=== PATIENT | female | born 1975 | race Caucasian/White ===

== ENCOUNTER 2017-02-13 12:08 | Emergency (ER) | payer SELFPAY ==
[2017-02-13 13:08] LABS: ABSOLUTE BASOPHILS # (AUTO) 0.1 10^3/uL (0.0-0.2); ABSOLUTE EOSINOPHILS # (AUTO) 0.3 10^3/uL (0.0-0.6); ABSOLUTE LYMPHOCYTES (AUTO) 2.6 10^3/uL (0.5-4.7); ABSOLUTE MONOCYTES (AUTO) 0.8 10^3/uL (0.1-1.4); ABSOLUTE NEUT (AUTO) 12.9 10^3/uL (1.7-8.2); BASOPHILS % (AUTO) 0.7 % (0-2); HEMATOCRIT 42.2 % (36.0-47.0); HEMOGLOBIN 13.1 g/dL (12.0-15.5); HGB HCT DIFFERENCE -2.9; LYMPHOCYTES % (AUTO) 15.4 % (13-45); MEAN CORPUSCULAR HEMOGLOBIN 20.3 pg (27.0-33.4); MEAN CORPUSCULAR HGB CONC 30.9 g/dL (32.0-36.0); MEAN CORPUSCULAR VOLUME 66 fl (80-97); MONOCYTES % (AUTO) 4.6 % (3-13); RED BLOOD COUNT 6.44 10^6/uL (3.72-5.28); RED CELL DISTRIBUTION WIDTH 19.3 % (11.5-14.0); SEGMENTED NEUTROPHILS % (AUTO) 77.3 % (42-78); WHITE BLOOD COUNT 16.6 10^3/uL (4.0-10.5)
[2017-02-13 13:12] LABS: APPEARANCE,URINE SLIGHTLY-CLOUDY; BILIRUBIN,URINE NEGATIVE (NEGATIVE); GLUCOSE, URINE NEGATIVE (NEGATIVE); KETONES,URINE NEGATIVE (NEGATIVE); LEUKOCYTE ESTERASE,URINE NEGATIVE (NEGATIVE); NITRITE,URINE NEGATIVE (NEGATIVE); PROTEIN,URINE NEGATIVE (NEGATIVE); UROBILINOGEN,URINE NEGATIVE mg/dL (<2.0)
[2017-02-13 13:20] LABS: ALANINE AMINOTRANSFERASE 20 U/L (9-52); ALBUMIN 4.3 g/dL (3.5-5.0); ALKALINE PHOSPHATASE 115 U/L (38-126); ANION GAP 15 (5-19); ASPARTATE AMINO TRANSFERASE 12 U/L (14-36); BILIRUBIN,DIRECT 0.4 mg/dL (0.0-0.4); BILIRUBIN,TOTAL 0.7 mg/dL (0.2-1.3); BLOOD UREA NITROGEN 11 mg/dL (7-20); CALCIUM 9.5 mg/dL (8.4-10.2); CARBON DIOXIDE 25 mmol/L (22-30); CHLORIDE 101 mmol/L (98-107); CREATININE RESULT 0.64 mg/dL (0.52-1.25); GLUCOSE 88 mg/dL (75-110); POTASSIUM 4.3 mmol/L (3.6-5.0); SODIUM 141.2 mmol/L (137-145); TOTAL PROTEIN 7.7 g/dL (6.3-8.2)
[2017-02-13 14:11] VITALS: BP 126/73
--- NOTE | 2017-02-13 14:16 | ER Document Report ---
ED Medical Screen (RME) - General Chief Complaint: Leg Swelling Stated Complaint: COUGH Time Seen by Provider: 02/13/17 12:43 Notes: Patient comes the emergency department complaining of leg swelling. She denies any pain. She has some sores in her legs which she states is from her anxiety where she chronically picks in her legs. She states she only came to the emergency department because a relative to in case he has congestive heart failure. She denies any type of shortness of breath or chest pain. She does not take any type of hormones. There is no known radiation of the symptoms. Symptoms have been constant. Nothing appears to make symptoms better or worse. She has not appreciated any fevers. TRAVEL OUTSIDE OF THE [place] IN LAST 30 DAYS: No - Related Data Allergies/Adverse Reactions: ofloxacin [From Floxin] Allergy (Intermediate, Verified 02/13/17 12:14) Hives Home Medications: Current Home Medications No Home Medications 02/13/17 [History] Past Medical History - General Information source: Patient - Social History Chew tobacco use (# tins/day): No Frequency of alcohol use: Occasional Drug Abuse: None Family history: Reviewed & Not Pertinent - Past Medical History Cardiac Medical History: Reports: Hx Hypertension Pulmonary Medical History: Reports: Hx COPD Endocrine Medical History: Reports: Hx Diabetes Mellitus Type 2 - gestational Renal/ Medical History: Denies: Hx Peritoneal Dialysis Musculoskeltal Medical History: Reports Hx Arthritis Past Surgical History: Reports: Hx Section, Hx Cholecystectomy - Immunizations Hx Diphtheria, Pertussis, Tetanus Vaccination: Yes Review of Systems - Review of Systems Constitutional: denies: Chills, Fever Cardiovascular: denies: Chest pain, Palpitations Respiratory: denies: Cough, Short of breath -: Yes All other systems reviewed and negative Physical Exam - Vital signs Vitals: Temp Pulse Resp BP Pulse Ox 98.5 F 69 24 H 152/88 H 96 02/13/17 12:14 02/13/17 12:14 02/13/17 12:14 02/13/17 12:14 02/13/17 12:14 Interpretation: Hypertensive - General General appearance: Appears well, Alert - HEENT Head: Normocephalic, Atraumatic Eyes: Normal Pupils: PERRL - Respiratory Respiratory status: No respiratory distress Chest status: Nontender Breath sounds: Normal Chest palpation: Normal - Cardiovascular Rhythm: Regular Heart sounds: Normal auscultation Murmur: No - Abdominal Inspection: Normal Distension: No distension Bowel sounds: Normal Tenderness: Nontender Organomegaly: No organomegaly - Back Back: Normal, Nontender - Extremities General upper extremity: Normal inspection, Nontender, Normal color, Normal ROM , Normal temperature General lower extremity: Nontender, Normal ROM, Normal temperature, Normal weight bearing, Other - Patient has multiple excoriated lesions on both lower extremities consistent with neurogenic eczema. No evidence of superimposed infection.. No: Antwan's sign - Neurological Neuro grossly intact: Yes Cognition: Normal Orientation: AAOx4 [place] Coma Scale Eye Opening: Spontaneous [place] Coma Scale Verbal: Oriented [place] Coma Scale Motor: Obeys Commands [place] Coma Scale Total: 15 Speech: Normal Motor strength normal: LUE, RUE, LLE, RLE Sensory: Normal - Psychological Associated symptoms: Normal affect, Normal mood - Skin Skin Temperature: Warm Skin Moisture: Dry Skin Color: Normal Course - Re-evaluation Re-evalutation: 02/13/17 14:14 Patient has an elevated white blood cell count. However there is no evidence that either leg is infected/cellulitic. No evidence for abscesses. No other obvious source of an elevated white blood cell count. Patient was educated about this and the need for return to a medical provider if she develops fevers , weakness, or symptoms consistent with infection. - Vital Signs Vital signs: Temp Pulse Resp BP Pulse Ox 98.5 F 65 16 126/73 H 96 02/13/17 12:14 02/13/17 14:10 02/13/17 14:10 02/13/17 14:10 02/13/17 14:10 - Laboratory Result Diagrams: 02/13/17 12:55 02/13/17 12:55 Laboratory results interpreted by me: 02/13/17 02/13/17 12:55 12:55 WBC 16.6 H RBC 6.44 H MCV 66 L MCH 20.3 L MCHC 30.9 L RDW 19.3 H Absolute Neutrophils 12.9 H AST 12 L Doctor's Discharge - Discharge Clinical Impression: Bilateral lower extremity edema Condition: Stable Disposition: HOME, SELF-CARE Instructions: Dependent Edema ([facility]) Additional Instructions: Please call your primary care physician as soon as possible to arrange for a recheck. Your white blood cell count was elevated today at 16,000. You need to have this rechecked within the next 7 days.
== END 2017-02-13 14:20 | disposition home or self-care (01) ==
LOC: ER 12:08
DX: R60.0 Localized edema (principal); L98.9 Disorder of the skin and subcutaneous tissue, unspecified; D72.829 Elevated white blood cell count, unspecified; I10 Essential (primary) hypertension; J44.9 Chronic obstructive pulmonary disease, unspecified; Z88.1 Allergy status to other antibiotic agents
CPT/HCPCS: 36415; 80053; 81001; 85025; 99283

== ENCOUNTER 2017-03-31 17:13 | Emergency (ER) | payer SELFPAY ==
[2017-03-31] MEDS ORDERED: ALBUTEROL SULFATE 0.083% NEB 2.5 MG/3 ML AMPUL NEB ONE ×2 (19:50→21:59)
--- NOTE | 2017-03-31 19:53 | ER Document Report ---
ED Medical Screen (RME) - General Chief Complaint: Abdominal Pain Stated Complaint: ABDOMINAL PAIN Time Seen by Provider: 03/31/17 19:42 Notes: patient is a 41 year old female who presents ot the ED complaining of RLQ pain that started today. states she was sitting in her home smoking a cigarette and had a coughing fit. describes it as RLQ pain with intermittent sharp craming sensation when she moves. otherwise denies fevers, chills, nausea, vomiting. LBM was today, soft. she states she has had a cough for one week, dx COPD, current smoker, no inhalers at home, not able to f/u with [facility] due to cost. TRAVEL OUTSIDE OF THE [place] IN LAST 30 DAYS: No - Related Data Allergies/Adverse Reactions: ofloxacin [From Floxin] Allergy (Intermediate, Verified 03/31/17 17:16) Hives Past Medical History - Social History Chew tobacco use (# tins/day): No Frequency of alcohol use: None Drug Abuse: None Family history: Reviewed & Not Pertinent - Past Medical History Cardiac Medical History: Reports: Hx Hypertension Pulmonary Medical History: Reports: Hx COPD Endocrine Medical History: Reports: Hx Diabetes Mellitus Type 2 - gestational Renal/ Medical History: Denies: Hx Peritoneal Dialysis Musculoskeltal Medical History: Reports Hx Arthritis Past Surgical History: Reports: Hx Section, Hx Cholecystectomy - Immunizations Hx Diphtheria, Pertussis, Tetanus Vaccination: Yes Physical Exam - Vital signs Vitals: Temp Pulse Resp BP Pulse Ox 98.6 F 80 16 182/65 H 96 03/31/17 17:16 03/31/17 17:16 03/31/17 17:16 03/31/17 17:16 03/31/17 17:16 - General General appearance: Appears well, Alert In distress: None - Respiratory Respiratory status: No respiratory distress Chest status: Nontender Breath sounds: Decreased air movement, Wheezing Chest palpation: Normal - Cardiovascular Rhythm: Regular Heart sounds: Normal auscultation, S1 appreciated, S2 appreciated - Abdominal Inspection: Normal Distension: No distension Bowel sounds: Normal Tenderness: Nontender Organomegaly: No organomegaly Course - Vital Signs Vital signs: Temp Pulse Resp BP Pulse Ox 98.6 F 80 16 182/65 H 96 03/31/17 17:16 03/31/17 17:16 03/31/17 17:16 03/31/17 17:16 10/13/17 17:16
[2017-03-31 20:25] LABS: ABSOLUTE BASOPHILS # (AUTO) 0.1 10^3/uL (0.0-0.2); ABSOLUTE EOSINOPHILS # (AUTO) 0.4 10^3/uL (0.0-0.6); ABSOLUTE LYMPHOCYTES (AUTO) 2.2 10^3/uL (0.5-4.7); ABSOLUTE MONOCYTES (AUTO) 0.7 10^3/uL (0.1-1.4); ABSOLUTE NEUT (AUTO) 12.3 10^3/uL (1.7-8.2); BASOPHILS % (AUTO) 0.5 % (0-2); EOSINOPHILS % (AUTO) 2.8 % (0-6); HEMATOCRIT 40.3 % (36.0-47.0); HEMOGLOBIN 12.6 g/dL (12.0-15.5); HGB HCT DIFFERENCE -2.5; LYMPHOCYTES % (AUTO) 14.1 % (13-45); MEAN CORPUSCULAR HEMOGLOBIN 19.9 pg (27.0-33.4); MEAN CORPUSCULAR HGB CONC 31.2 g/dL (32.0-36.0); MONOCYTES % (AUTO) 4.6 % (3-13); RED BLOOD COUNT 6.32 10^6/uL (3.72-5.28); WHITE BLOOD COUNT 15.8 10^3/uL (4.0-10.5)
[2017-03-31 20:27] LABS: AMORPHOUS SEDIMENT,URINE TRACE /HPF; APPEARANCE,URINE TURBID; BILIRUBIN,URINE NEGATIVE (NEGATIVE); GLUCOSE, URINE NEGATIVE (NEGATIVE); KETONES,URINE NEGATIVE (NEGATIVE); LEUKOCYTE ESTERASE,URINE NEGATIVE (NEGATIVE); NITRITE,URINE NEGATIVE (NEGATIVE); PROTEIN,URINE NEGATIVE (NEGATIVE)
[2017-03-31 20:44] LABS: ALANINE AMINOTRANSFERASE 18 U/L (9-52); ALKALINE PHOSPHATASE 125 U/L (38-126); ANION GAP 12 (5-19); ASPARTATE AMINO TRANSFERASE 18 U/L (14-36); BILIRUBIN,DIRECT 0.4 mg/dL (0.0-0.4); BILIRUBIN,TOTAL 0.6 mg/dL (0.2-1.3); BLOOD UREA NITROGEN 13 mg/dL (7-20); CALCIUM 9.3 mg/dL (8.4-10.2); CARBON DIOXIDE 27 mmol/L (22-30); CHLORIDE 103 mmol/L (98-107); CREATININE RESULT 0.71 mg/dL (0.52-1.25); GLUCOSE 115 mg/dL (75-110); LIPASE 37.5 U/L (23-300); POTASSIUM 4.9 mmol/L (3.6-5.0); SODIUM 141.8 mmol/L (137-145); TOTAL PROTEIN 7.3 g/dL (6.3-8.2)
--- NOTE | 2017-03-31 20:47 | RADIOLOGY REPORT (SQ) ---
EXAM DESCRIPTION: CHEST PA/LAT COMPLETED DATE/TIME: 03/31/2017 8:34 pm REASON FOR STUDY: cough COMPARISON: 12/22/2010 EXAM PARAMETERS: NUMBER OF VIEWS: two views TECHNIQUE: Digital Frontal and Lateral radiographic views of the chest acquired. RADIATION DOSE: NA LIMITATIONS: none FINDINGS: LUNGS AND PLEURA: No new opacities, masses or pneumothorax. No pleural effusion. MEDIASTINUM AND HILAR STRUCTURES: No masses or contour abnormalities. HEART AND VASCULAR STRUCTURES: Heart stable in size. No evidence for failure. BONES: No acute findings. HARDWARE: None in the chest. OTHER: No other significant finding. IMPRESSION: NO ACUTE CARDIOPULMONARY PROCESS. NO SIGNIFICANT CHANGE FROM PRIOR STUDY. TECHNICAL DOCUMENTATION: JOB ID: [id number] [employer]- All Rights Reserved
[2017-03-31 21:06] LABS: ANISOCYTOSIS 2+; MICROCYTOSIS 3+
[2017-03-31 21:08] LABS: POLYCHROMASIA SLIGHT
[2017-03-31 21:09] LABS: STOMATOCYTES SLIGHT
[2017-03-31 21:11] LABS: HYPOCHROMASIA 2+
[2017-03-31 21:14] LABS: MEAN CORPUSCULAR VOLUME 64 fl (80-97)
--- NOTE | 2017-03-31 22:09 | RADIOLOGY REPORT (SQ) ---
EXAM DESCRIPTION: CT ABD/PELVIS WITH IV ONLY COMPLETED DATE/TIME: 03/31/2017 9:59 pm REASON FOR STUDY: RLQ pain with wolf WBC COMPARISON: 04/17/2014 in 12/06/2013 TECHNIQUE: CT scan of the abdomen and pelvis performed using helical scanning technique with dynamic intravenous contrast injection. No oral contrast. Images reviewed with lung, soft tissue, and bone windows. Reconstructed coronal and sagittal MPR images reviewed. Delayed images for evaluation of the urinary system also acquired. All images stored on PACS. All CT scanners at this facility use dose modulation, iterative reconstruction, and/or weight based d osing when appropriate to reduce radiation dose to as low as reasonably achievable (ALARA). [facility]: Dose Right [facility]: CareDose [facility]: Dose Right [facility]: Teradose 4D [facility]: Umami CONTRAST TYPE AND DOSE: contrast/concentration: Isovue 370.00 mg/ml; Total Contrast Delivered: 100.0 ml; Total Saline Delivered: 72.0 ml RENAL FUNCTION: None required. The patient is less than 50 years old. RADIATION DOSE: Up-to-date CT equipment and radiation dose reduction techniques were employed. CTDIv ol: 21.1 mGy. DLP: 2267 mGy-cm.. LIMITATIONS: None. FINDINGS: LOWER CHEST: No significant findings. No nodules or infiltrates. LIVER: Stable hepatomegaly in the setting of hepatic steatosis. No masses. No dilated ducts. SPLEEN: Normal size. No focal lesions. PANCREAS: No masses. No significant calcifications. No adjacent inflammation or peripancreatic fluid collections. Pancreatic duct not dilated. GALLBLADDER: Surgically absent. ADRENAL GLANDS: No significant masses or asymmetry. RIGHT KIDNEY AND URETER: No solid masses. No significant calcifications. No hydronephrosis or hyd roureter. LEFT KIDNEY AND URETER: No solid masses. No significant calcifications. No hydronephrosis or hydr oureter. AORTA AND VESSELS: No aneurysm. No dissection. Renal arteries, SMA, celiac without stenosis. RETROPERITONEUM: No retroperitoneal adenopathy, hemorrhage or masses. BOWEL AND PERITONEAL CAVITY: No masses or inflammatory changes. No free fluid or peritoneal masses. APPENDIX: Normal. PELVIS: No mass. No free fluid. 8 mm calculus located within the bladder which is otherwise normal in appearance. ABDOMINAL WALL: No masses. No hernias. BONES: No significant or acute findings. OTHER: No other significant finding. IMPRESSION: NO ACUTE FINDINGS WITHIN THE ABDOMEN OR PELVIS TO ACCOUNT FOR REPORTED RIGHT LOWER QUADR ANT PAIN. APPENDIX IS NORMAL. INCIDENTAL NOTE MADE OF 8 MM CALCULUS WITHIN THE BLADDER WHICH PREVIOUSLY WAS LOCATED IN THE LEFT DIS DESIREE URETER ON CT FROM 2013. TECHNICAL DOCUMENTATION: JOB ID: [id number] Quality ID # [id number]: Final reports with documentation of one or more dose reduction techniques (e.g., Au tomated exposure control, adjustment of the mA and/or kV according to patient size, use of iterative reconstruction technique) 2010 [employer]- All Rights Reserved
[2017-03-31] MEDS ORDERED: ALBUTEROL SULFATE HFA (90 MCG/PUFF) 8 GM MDI (1 MDI/ER DISP) IH PRN (22:43)
--- NOTE | 2017-03-31 22:43 | ER Document Report ---
ED GI/ - General Chief Complaint: Abdominal Pain Stated Complaint: ABDOMINAL PAIN Time Seen by Provider: 03/31/17 19:42 Notes: Patient is a 41-year-old female presents with right lower quadrant pain. Patient states that she was sitting drinking iced tea when she had sudden right lower quadrant pain with associated nausea. She states that it was present for about half an hour and then down to a dull achy constant pain. She states that she has never had issues like this before as she still has her appendix. TRAVEL OUTSIDE OF THE [place] IN LAST 30 DAYS: No - Related Data Allergies/Adverse Reactions: ofloxacin [From Floxin] Allergy (Intermediate, Verified 03/31/17 17:16) Hives Past Medical History - Social History Smoking Status: Current Every Day Smoker Chew tobacco use (# tins/day): No Frequency of alcohol use: None Drug Abuse: None Family History: Reviewed & Not Pertinent Patient has suicidal ideation: No Patient has homicidal ideation: No - Past Medical History Cardiac Medical History: Reports: Hx Hypertension Pulmonary Medical History: Reports: Hx COPD Endocrine Medical History: Reports: Hx Diabetes Mellitus Type 2 - gestational Renal/ Medical History: Denies: Hx Peritoneal Dialysis Musculoskeltal Medical History: Reports Hx Arthritis Past Surgical History: Reports: Hx Section, Hx Cholecystectomy - Immunizations Hx Diphtheria, Pertussis, Tetanus Vaccination: Yes Review of Systems - Review of Systems Constitutional: No symptoms reported Cardiovascular: No symptoms reported Respiratory: Cough, Wheezing Gastrointestinal: See HPI -: Yes All other systems reviewed and negative Physical Exam - Vital signs Vitals: Temp Pulse Resp BP Pulse Ox 98.6 F 80 16 182/65 H 96 03/31/17 17:16 03/31/17 17:16 03/31/17 17:16 03/31/17 17:16 03/31/17 17:16 - Notes Notes: PHYSICAL EXAM GENERAL: Alert, interacts well. HEAD: Normocephalic, atraumatic. EYES: Pupils equal, round, and reactive to light. Extraocular movements intact. ENT: Oral mucosa moist, tongue midline. NECK: Full range of motion. Supple. Trachea midline. LUNGS: Bilateral expiratory wheezes without rales or rhonchi. No respiratory distress. HEART: Regular rate and rhythm. No murmurs, gallops, or rubs. ABDOMEN: Soft, nondistended, right lower quadrant tenderness. No guarding, rebound, or rigidity.. Bowel sounds present in all 4 quadrants. EXTREMITIES: Moves all 4 extremities spontaneously. No edema, radial and dorsalis pedis pulses 2/4 bilaterally. No cyanosis. NEUROLOGICAL: Alert and oriented x4. Normal speech. PSYCH: Normal affect, normal mood. SKIN: Warm, dry, normal turgor. No rashes or lesions noted. Course - Re-evaluation Re-evalutation: 03/31/17 22:41 Patient is a 41-year-old female hemodynamic stable, no acute distress afebrile. CT negative The patient has chosen to leave the facility against medical advice. The relevant issues have been reviewed and discussed with the patient and family at the bedside. Patient tolerating p.o. without any difficulty. Patient given strict return precautions and observation protocol for acute appendicitis. Patient agrees with plan and will follow up with primary care. - Vital Signs Vital signs: Temp Pulse Resp BP Pulse Ox 98.4 F 84 18 146/58 H 100 03/31/17 23:07 03/31/17 23:07 03/31/17 23:07 03/31/17 23:07 03/31/17 23:07 - Laboratory Result Diagrams: 03/31/17 20:05 03/31/17 20:05 Laboratory results interpreted by me: 03/31/17 03/31/17 03/31/17 17:50 20:05 20:05 WBC 15.8 H RBC 6.32 H MCV 64 L MCH 19.9 L MCHC 31.2 L RDW 19.0 H Absolute Neutrophils 12.3 H Glucose 115 H Urine Urobilinogen 2.0 H - Diagnostic Test Radiology reviewed: Image reviewed, Reports reviewed Discharge - Discharge Clinical Impression: COPD exacerbation Abdominal pain Qualifiers: Abdominal location: right lower quadrant Qualified Code(s): R10.31 - Right lower quadrant pain Condition: Good Disposition: HOME, SELF-CARE Instructions: Chronic Obstructive Lung Disease ([facility]), Observation for Appendicitis ([facility]) Prescriptions: Prednisone [Deltasone 20 mg Tablet] 3 tab PO DAILY 5 Days tablet Referrals: [facility] [Provider Group] - Follow up in 3-5 days
[2017-03-31 23:09] VITALS: BP 146/58
== END 2017-03-31 22:55 | disposition home or self-care (01) ==
LOC: ER 17:13
DX: J44.1 Chronic obstructive pulmonary disease with (acute) exacerbation (principal); R10.31 Right lower quadrant pain; R11.0 Nausea; F17.200 Nicotine dependence, unspecified, uncomplicated; I10 Essential (primary) hypertension; Z90.49 Acquired absence of other specified parts of digestive tract
CPT/HCPCS: 94640; 99284; 36415; 83690; 85025; 81025; 80053; 81001; 71020; 74177; J3490

== ENCOUNTER 2017-04-04 18:15 | Emergency (ER) | payer SELFPAY ==
--- NOTE | 2017-04-04 19:01 | ER Document Report ---
ED Medical Screen (RME) - General Chief Complaint: Abdominal Pain Stated Complaint: ABDOMINAL PAIN Time Seen by Provider: 04/04/17 18:53 Notes: Patient states that she was seen here several days ago for right lower quadrant pain. At that time a CT scan showed a normal appendix however it did show an 8 mm stone in her bladder. Patient states that the pain has has gotten worse. TRAVEL OUTSIDE OF THE [place] IN LAST 30 DAYS: No - Related Data Allergies/Adverse Reactions: ofloxacin [From Floxin] Allergy (Intermediate, Verified 04/04/17 18:20) Hives Past Medical History - Social History Family history: Reviewed & Not Pertinent - Past Medical History Cardiac Medical History: Reports: Hx Hypertension Pulmonary Medical History: Reports: Hx COPD Endocrine Medical History: Reports: Hx Diabetes Mellitus Type 2 - gestational Renal/ Medical History: Denies: Hx Peritoneal Dialysis Musculoskeltal Medical History: Reports Hx Arthritis Past Surgical History: Reports: Hx Section, Hx Cholecystectomy - Immunizations Hx Diphtheria, Pertussis, Tetanus Vaccination: Yes Physical Exam - Vital signs Vitals: Temp Pulse BP Pulse Ox 98.7 F 71 161/77 H 97 04/04/17 18:20 04/04/17 18:20 04/04/17 18:20 04/04/17 18:20 Course - Vital Signs Vital signs: Temp Pulse Resp BP Pulse Ox 98.7 F 71 161/77 H 97 04/04/17 18:20 04/04/17 18:20 04/04/17 18:20 04/04/17 18:20
[2017-04-04 19:50] LABS: ABSOLUTE BASOPHILS # (AUTO) 0.1 10^3/uL (0.0-0.2); ABSOLUTE EOSINOPHILS # (AUTO) 0.5 10^3/uL (0.0-0.6); ABSOLUTE LYMPHOCYTES (AUTO) 2.6 10^3/uL (0.5-4.7); ABSOLUTE MONOCYTES (AUTO) 0.8 10^3/uL (0.1-1.4); ABSOLUTE NEUT (AUTO) 11.4 10^3/uL (1.7-8.2); BASOPHILS % (AUTO) 0.5 % (0-2); HEMATOCRIT 39.4 % (36.0-47.0); HEMOGLOBIN 12.4 g/dL (12.0-15.5); HGB HCT DIFFERENCE -2.2; LYMPHOCYTES % (AUTO) 16.8 % (13-45); MEAN CORPUSCULAR HGB CONC 31.4 g/dL (32.0-36.0); MEAN CORPUSCULAR VOLUME 64 fl (80-97); MONOCYTES % (AUTO) 5.2 % (3-13); RED BLOOD COUNT 6.18 10^6/uL (3.72-5.28); RED CELL DISTRIBUTION WIDTH 19.3 % (11.5-14.0); SEGMENTED NEUTROPHILS % (AUTO) 74.5 % (42-78); WHITE BLOOD COUNT 15.4 10^3/uL (4.0-10.5)
[2017-04-04 19:51] LABS: APPEARANCE,URINE SLIGHTLY-CLOUDY; BILIRUBIN,URINE NEGATIVE (NEGATIVE); GLUCOSE, URINE NEGATIVE (NEGATIVE); KETONES,URINE NEGATIVE (NEGATIVE); LEUKOCYTE ESTERASE,URINE NEGATIVE (NEGATIVE); NITRITE,URINE NEGATIVE (NEGATIVE); PROTEIN,URINE NEGATIVE (NEGATIVE); URINE SPECIFIC GRAVITY 1.021
[2017-04-04 20:03] LABS: ALANINE AMINOTRANSFERASE 30 U/L (9-52); ALKALINE PHOSPHATASE 141 U/L (38-126); ANION GAP 12 (5-19); ASPARTATE AMINO TRANSFERASE 14 U/L (14-36); BILIRUBIN,DIRECT 0.4 mg/dL (0.0-0.4); BILIRUBIN,TOTAL 0.4 mg/dL (0.2-1.3); BLOOD UREA NITROGEN 13 mg/dL (7-20); CALCIUM 9.3 mg/dL (8.4-10.2); CARBON DIOXIDE 27 mmol/L (22-30); CHLORIDE 103 mmol/L (98-107); CREATININE RESULT 0.65 mg/dL (0.52-1.25); GLUCOSE 100 mg/dL (75-110); POTASSIUM 4.3 mmol/L (3.6-5.0); SODIUM 141.8 mmol/L (137-145); TOTAL PROTEIN 7.3 g/dL (6.3-8.2)
[2017-04-04 20:14] LABS: TOXIC GRANULATION SLIGHT
[2017-04-04 20:15] LABS: ANISOCYTOSIS 2+; HYPOCHROMASIA 2+; MICROCYTOSIS 3+
--- NOTE | 2017-04-04 21:15 | ER Document Report ---
ED General - General Chief Complaint: Abdominal Pain Stated Complaint: ABDOMINAL PAIN Time Seen by Provider: 04/04/17 18:53 TRAVEL OUTSIDE OF THE [place] IN LAST 30 DAYS: No - HPI Notes: Patient is a 41-year-old female who presents the ED complaining of continued right lower quadrant pain since her visit on Monday. At that time, patient had a CT scan report and blood work which was unremarkable for acute pathology. Patient states that she continues to have pain in that area that is worse with some movements and pressure. Patient states that the pain is improved when she sits forward and applies pressure. Patient is still eating and drinking without any difficulties. She is still urinating normally without any issues and having normal bowel movements. Patient states that her stool is firm but not hard. Her last bowel movement was today which was normal, but she had increased pain to the area when having the BM. The pain does not radiate and is described as sharp. She denies any recent illness. Denies any headache, fever, URI, sore throat, chest pain, palpitations, syncope, cough, shortness of breath, wheeze, dyspnea, nausea/vomiting/diarrhea, melena, hematochezia, urinary retention, dysuria, hematuria, vaginal discharge/odor/bleeding, loss of control of bowel or bladder, numbness/tingling, saddle anesthesia, muscle paralysis/weakness, or rash. - Related Data Allergies/Adverse Reactions: ofloxacin [From Floxin] Allergy (Intermediate, Verified 04/04/17 18:20) Hives Past Medical History - Social History Smoking Status: Current Every Day Smoker Family History: Reviewed & Not Pertinent - Past Medical History Cardiac Medical History: Reports: Hx Hypertension Pulmonary Medical History: Reports: Hx COPD Endocrine Medical History: Reports: Hx Diabetes Mellitus Type 2 - gestational Renal/ Medical History: Denies: Hx Peritoneal Dialysis Musculoskeltal Medical History: Reports Hx Arthritis Past Surgical History: Reports: Hx Section, Hx Cholecystectomy - Immunizations Hx Diphtheria, Pertussis, Tetanus Vaccination: Yes Review of Systems - Review of Systems Notes: REVIEW OF SYSTEMS: CONSTITUTIONAL : Denies fever, chills, or sweats. Denies recent illness. EENT: Denies eye, ear, throat, or mouth pain or symptoms. Denies nasal or sinus congestion or discharge. Denies throat, tongue, or mouth swelling or difficulty swallowing. CARDIOVASCULAR: Denies chest pain. Denies palpitations or racing or irregular heart beat. Denies ankle edema. RESPIRATORY: Denies cough, cold, or chest congestion. Denies shortness of breath, difficulty breathing, or wheezing. GASTROINTESTINAL: see hpi GENITOURINARY: Denies difficulty urinating, painful urination, burning, frequency, blood in urine, or discharge. FEMALE GENITOURINARY: Denies vaginal bleeding, heavy or abnormal periods, irregular periods. Denies vaginal discharge or odor. MUSCULOSKELETAL: Denies back or neck pain or stiffness. Denies joint pain or swelling. SKIN: Denies rash, lesions or sores. NEUROLOGICAL: Denies confusion or altered mental status. Denies passing out or loss of consciousness. Denies dizziness or lightheadedness. Denies headache. Denies weakness or paralysis or loss of use of either side. Denies problems with gait or speech. Denies sensory loss, numbness, or tingling. ALL OTHER SYSTEMS REVIEWED AND NEGATIVE. Dictation was performed using [employer] voice recognition software Physical Exam - Vital signs Vitals: Temp Pulse BP Pulse Ox 98.7 F 71 161/77 H 97 04/04/17 18:20 04/04/17 18:20 04/04/17 18:20 04/04/17 18:20 Notes: PHYSICAL EXAMINATION: GENERAL: Well-appearing, well-nourished and in no acute distress. A&Ox4 HEAD: Atraumatic, normocephalic. EYES: Pupils equal round and reactive to light, extraocular movements intact, sclera anicteric, conjunctiva are normal. ENT: Nares patent and without discharge. oropharynx clear without exudates. No tonsilar hypertrophy or erythema. Moist mucous membranes. NECK: Normal range of motion, supple without lymphadenopathy LUNGS: Breath sounds clear to auscultation bilaterally and equal. No wheezes rales or rhonchi. HEART: Regular rate and rhythm without murmurs, rubs, gallops. ABDOMEN: Soft, nondistended abdomen. No guarding, no rebound. No masses appreciated. Normal bowel sounds present. No CVA tenderness bilaterally. Morbidly obese. + tenderness to light pressure of the RLQ. No erythema, ecchymosis, abrasion, laceration, or rash noted. No obvious hernia appreciated. No inguinal adenopathy. The tenderness appears to be lateral and superior to the area of [employer]. Musculoskeletal: FROM to passive/active. Strength 5+/5. Extremities: No cyanosis, clubbing, or edema b/l. Peripheral pulses 2+. Capillary refill less than 3 seconds. NEUROLOGICAL: Cranial nerves grossly intact. Normal speech, normal gait. Normal sensory, motor exams PSYCH: Normal mood, normal affect. SKIN: Warm, Dry, normal turgor, no rashes or lesions noted. Course - Re-evaluation Re-evalutation: 04/04/17 22:[address] Francois who is in agreement with discharge/plan: Patient is an afebrile, well-hydrated, 41-year-old female who presents the ED with continued right lower quadrant pain. Vitals are stable. Patient was evaluated 4 days ago and had a negative work up including a CT scan of the abd/ pelvis. CBC, CMP, UA, pregn unremarkable today. Abd XR series did show stool throughout the colon. I suspect that her sx's are most likely a derivative of her abundant stool. I will send her home with a Rx for Mag citrate that she may take at home. Low suspicion/risk for acute appendicitis, bowel obstruction , acute cholecystitis, acute cholangitis, perforated diverticulitis, incarcerated hernia, pancreatitis, perforated ulcer, peritonitis, sepsis, pelvic inflammatory disease, ectopic , tubo-ovarian abscess, ovarian torsion, or other systemic emergent condition at this time. Patient is aware that her condition can change from initial presentation and she needs to monitor symptoms closely and seek medical attention if any acute changes. Conservative measures otherwise for symptoms. Recheck with your PCM in 2-3 days. Consider consult with a rewinder operator. Return to the ED with any worsening/concerning symptoms otherwise as reviewed in discharge. Patient is in agreement. - Vital Signs Vital signs: Temp Pulse Resp BP Pulse Ox 98.7 F 71 161/77 H 97 04/04/17 18:20 04/04/17 18:20 04/04/17 18:20 04/04/17 18:20 - Laboratory Result Diagrams: 04/04/17 19:00 04/04/17 19:00 Laboratory results interpreted by me: 04/04/17 04/04/17 04/04/17 19:00 19:00 19:00 WBC 15.4 H RBC 6.18 H MCV 64 L MCH 20.0 L MCHC 31.4 L RDW 19.3 H Absolute Neutrophils 11.4 H Alkaline Phosphatase 141 H Urine Urobilinogen 2.0 H Discharge - Discharge Clinical Impression: Right lower quadrant abdominal pain of unknown etiology Condition: Stable Disposition: HOME, SELF-CARE Instructions: Abdominal Pain ([facility]), Low-Fat Diet ([facility]), Observation for Appendicitis ([facility]), Stool Softener ([facility]) Additional Instructions: Maintain adequate fluid and food intake Increase fiber in diet and water intake tylenol if needed Stool softener as directed Monitor for any worsening symptoms Make sure you are staying hydrated enough to urinate and have normal BM's Recheck with your PCM in 2-3 days Consider consult with Gastroenterology for ongoing/worsening symptoms Return to the ED with any worsening symptoms and/or development of fever, headache, chest pain, palpitations, syncope, shortness of breath, trouble breathing, abdominal pain, n/v/d, blood in stool/urine, weakness, or other worsening symptoms that are concerning to you. Prescriptions: Magnesium Citrate [Citrate of Magnesia 296 ml Bottle] 296 ml PO ONCE PRN #1 bottle PRN Reason: Polyethylene Glycol 3350 [Miralax] 1 cap PO DAILY #527 powder Forms: Elevated Blood Pressure Referrals: OCTAVIO DE SOUZA MD [ACTIVE STAFF] - Follow up as needed
--- NOTE | 2017-04-04 23:19 | RADIOLOGY REPORT (SQ) ---
EXAM DESCRIPTION: ACUTE ABDOMEN SERIES COMPLETED DATE/TIME: 04/04/2017 10:13 pm REASON FOR STUDY: abd pain COMPARISON: None. NUMBER OF VIEWS: Three views. TECHNIQUE: Frontal chest, supine abdomen and upright/decubitus abdomen radiographic images acquired. LIMITATIONS: None. FINDINGS: CHEST: Lungs clear of infiltrates. FREE AIR: None. No abnormal gas collections. BOWEL GAS PATTERN: Nonobstructive pattern. No dilated loops or air fluid levels. CONSTIPATION: mild. CALCIFICATIONS: No suspicious calcifications. HARDWARE: None in the abdomen. SOFT TISSUES: No gross mass or suggestion of organomegaly. BONES: No acute fracture. No worrisome bone lesions. OTHER: No other significant finding. IMPRESSION: NO RADIOGRAPHIC EVIDENCE FOR ACUTE ABDOMINAL DISEASE. CONSTIPATION. TECHNICAL DOCUMENTATION: JOB ID: [id number] [employer]- All Rights Reserved
[2017-04-04 23:32] VITALS: BP 149/67
== END 2017-04-04 23:34 | disposition home or self-care (01) ==
LOC: ER 18:15
DX: R10.31 Right lower quadrant pain (principal); I10 Essential (primary) hypertension; J44.9 Chronic obstructive pulmonary disease, unspecified; F17.200 Nicotine dependence, unspecified, uncomplicated; Z88.1 Allergy status to other antibiotic agents
CPT/HCPCS: 36415; 74022; 80053; 81001; 81025; 85025; 99284

== ENCOUNTER 2017-10-03 08:29 | Emergency (ER) | payer MEDICAID ==
[2017-10-03] MEDS ORDERED: IPRATROPIUM/ALBUTEROL 0.5-2.5 MG/3 ML AMPUL NEB ONE ×3 (08:43→08:44)
--- NOTE | 2017-10-03 08:44 | ER Document Report ---
ED General - General Chief Complaint: Shortness Of Breath Stated Complaint: SHORTNESS OF BREATH Time Seen by Provider: 10/03/17 08:43 Mode of Arrival: Ambulatory Information source: Patient Notes: 42-year-old female history of COPD presents with shortness of breath wheezing sore throat. Patient notes symptoms have been ongoing for a couple days. Denies any fevers or chills. Patient was seen at outside facility yesterday rapid strep was negative, notes she was given a breathing treatment and discharged home patient notes she has had continued difficulty breathing pt is a smoker TRAVEL OUTSIDE OF THE [place] IN LAST 30 DAYS: No - HPI Onset: Last week Onset/Duration: Persistent Quality of pain: No pain Severity: Moderate Pain Level: Denies Associated symptoms: Nonproductive cough, Shortness of breath Exacerbated by: Walking, Coughing Relieved by: Denies Similar symptoms previously: Yes Recently seen / treated by doctor: Yes - Related Data Allergies/Adverse Reactions: ofloxacin [From Floxin] Allergy (Intermediate, Verified 04/04/17 18:20) Hives Past Medical History - Social History Smoking Status: Current Every Day Smoker Cigarette use (# per day): Yes Chew tobacco use (# tins/day): No Smoking Education Provided: Yes - Patient counselled regarding cessation for 4 minutes Family History: Reviewed & Not Pertinent - Past Medical History Cardiac Medical History: Reports: Hx Hypertension Pulmonary Medical History: Reports: Hx COPD Endocrine Medical History: Reports: Hx Diabetes Mellitus Type 2 - gestational Renal/ Medical History: Denies: Hx Peritoneal Dialysis Musculoskeltal Medical History: Reports Hx Arthritis Past Surgical History: Reports: Hx Section, Hx Cholecystectomy - Immunizations Hx Diphtheria, Pertussis, Tetanus Vaccination: Yes Review of Systems - Review of Systems Notes: REVIEW OF SYSTEMS: CONSTITUTIONAL : Denies fever, chills, or sweats. Denies recent illness. EENT: Admits to sore throat CARDIOVASCULAR: Denies chest pain. Denies palpitations or racing or irregular heart beat. Denies ankle edema. RESPIRATORY: Admits cough wheezing GASTROINTESTINAL: Denies abdominal pain or distention. Denies nausea, vomiting , or diarrhea. Denies blood in vomitus, stools, or per rectum. Denies black, tarry stools. Denies constipation. GENITOURINARY: Denies difficulty urinating, painful urination, burning, frequency, blood in urine, or discharge. FEMALE GENITOURINARY: Denies vaginal bleeding, heavy or abnormal periods, irregular periods. Denies vaginal discharge or odor. MUSCULOSKELETAL: Denies back or neck pain or stiffness. Denies joint pain or swelling. SKIN: Denies rash, lesions or sores. HEMATOLOGIC : Denies easy bruising or bleeding. LYMPHATIC: Denies swollen, enlarged glands. NEUROLOGICAL: Denies confusion or altered mental status. Denies passing out or loss of consciousness. Denies dizziness or lightheadedness. Denies headache. Denies weakness or paralysis or loss of use of either side. Denies problems with gait or speech. Denies sensory loss, numbness, or tingling. Denies seizures. PSYCHIATRIC: Denies anxiety or stress. Denies depression, suicidal ideation, or homicidal ideation. ALL OTHER SYSTEMS REVIEWED AND NEGATIVE. PHYSICAL EXAMINATION: GENERAL: Well-appearing, well-nourished and in mild respiratory distress HEAD: Atraumatic, normocephalic. EYES: Pupils equal round and reactive to light, extraocular movements intact, conjunctiva are normal. ENT: Nares patent, oropharynx clear without exudates. Moist mucous membranes. Bilateral tonsillar enlargement no exudate NECK: Normal range of motion, supple without lymphadenopathy LUNGS: coarse wheezing all throughout HEART: Regular rate and rhythm without murmurs ABDOMEN: Soft, nontender, nondistended abdomen. No guarding, no rebound. No masses appreciated. Female : deferred Musculoskeletal: Normal range of motion, no pitting or edema. No cyanosis. NEUROLOGICAL: Cranial nerves grossly intact. Normal speech, normal gait. Normal sensory, motor exams PSYCH: Normal mood, normal affect. SKIN: Warm, Dry, normal turgor, no rashes or lesions noted. Dictation was performed using [employer] voice recognition software Physical Exam - Vital signs Vitals: Temp Pulse Resp BP Pulse Ox 97.8 F 66 20 183/71 H 93 10/03/17 08:36 10/03/17 08:36 10/03/17 08:36 10/03/17 08:36 10/03/17 08:36 Course - Re-evaluation Re-evalutation: 10/03/17 09:00 Patient's airway is patent overall she looks well is satting 93-94% on room air. 10/03/17 11:05 pt was ambulated, satting 92-95% with ambulation but at rest back ot 95%, will ocntinue ot watch. 10/03/17 11:50 Patient has been resting comfortably satting 95% speaking complete sentences, patient overall looks well is in no distress will be discharged home she is already on prescription for prednisone and albuterol doxycycline and Hycodan elixir After performing a Medical Screening Examination, I estimate there is LOW risk for ACUTE CORONARY SYNDROME, PULMONARY EMBOLI, RESPIRATORY FAILURE, SEPSIS OR MENINGITIS, thus I consider the discharge disposition reasonable. I have reevaluated this patient multiple times and no significant life threatening changes are noted. The patient and I have discussed the diagnosis and risks, and we agree with discharging home with close follow-up. We also discussed returning to the Emergency Department immediately if new or worsening symptoms occur. We have discussed the symptoms which are most concerning (e.g., changing or worsening pain, trouble swallowing or breathing, neck stiffness, fever) that necessitate immediate return. - Vital Signs Vital signs: Temp Pulse Resp BP Pulse Ox 97.8 F 66 23 H 154/64 H 94 10/03/17 08:36 10/03/17 08:36 10/03/17 11:00 10/03/17 10:02 10/03/17 11:00 - Laboratory Result Diagrams: 10/03/17 08:58 10/03/17 10:58 Laboratory results interpreted by me: 10/03/17 10/03/17 08:58 10:58 WBC 14.1 H RBC 6.30 H MCV 63 L MCH 19.0 L MCHC 30.3 L RDW 20.7 H Absolute Neutrophils 10.3 H Glucose 130 H - Diagnostic Test Radiology reviewed: Image reviewed - No acute abnormality noted on two-view chest x-ray, Reports reviewed Discharge - Discharge Clinical Impression: COPD exacerbation, Sore throat Condition: Stable Disposition: HOME, SELF-CARE Instructions: Chronic Obstructive Lung Disease ([facility]) Prescriptions: Benzonatate [Tessalon Perles 100 mg Capsule] 100 mg PO Q8HP PRN #40 capsule PRN Reason: Guaifenesin [Mucinex] 600 mg PO BID #20 tab.er.[id number] Referrals: SILVIO MOULTON MD [ACTIVE STAFF] - Follow up tomorrow
[2017-10-03 09:18] LABS: ABSOLUTE BASOPHILS # (AUTO) 0.1 10^3/uL (0.0-0.2); ABSOLUTE EOSINOPHILS # (AUTO) 0.2 10^3/uL (0.0-0.6); ABSOLUTE LYMPHOCYTES (AUTO) 2.2 10^3/uL (0.5-4.7); ABSOLUTE MONOCYTES (AUTO) 1.3 10^3/uL (0.1-1.4); ABSOLUTE NEUT (AUTO) 10.3 10^3/uL (1.7-8.2); BASOPHILS % (AUTO) 0.7 % (0-2); EOSINOPHILS % (AUTO) 1.4 % (0-6); HEMATOCRIT 39.6 % (36.0-47.0); LYMPHOCYTES % (AUTO) 15.6 % (13-45); MEAN CORPUSCULAR HGB CONC 30.3 g/dL (32.0-36.0); MEAN CORPUSCULAR VOLUME 63 fl (80-97); MONOCYTES % (AUTO) 9.3 % (3-13); PLATELET COUNT 286 10^3/uL (150-450); RED CELL DISTRIBUTION WIDTH 20.7 % (11.5-14.0); TOTAL CELLS COUNTED % (AUTO) 100 %; WHITE BLOOD COUNT 14.1 10^3/uL (4.0-10.5)
--- NOTE | 2017-10-03 09:47 | RADIOLOGY REPORT (SQ) ---
EXAM DESCRIPTION: CHEST 2 VIEWS COMPLETED DATE/TIME: 10/03/2017 9:37 am REASON FOR STUDY: cough , wheezing COMPARISON: Two-view chest 03/31/2017, 12/22/2010 EXAM PARAMETERS: NUMBER OF VIEWS: two views TECHNIQUE: Digital Frontal and Lateral radiographic views of the chest acquired. RADIATION DOSE: NA LIMITATIONS: none FINDINGS: LUNGS AND PLEURA: No opacities, masses or pneumothorax. No pleural effusion. MEDIASTINUM AND HILAR STRUCTURES: No masses or contour abnormalities. HEART AND VASCULAR STRUCTURES: Heart normal size. No evidence for failure. BONES: No acute findings. HARDWARE: None in the chest. OTHER: No other significant finding. IMPRESSION: NO ACUTE RADIOGRAPHIC FINDING IN THE CHEST. TECHNICAL DOCUMENTATION: JOB ID: [id number] [employer]- All Rights Reserved Reading location - IP/workstation name: [email or web address]
[2017-10-03 09:49] LABS: ANISOCYTOSIS 2+; HYPOCHROMASIA SLIGHT; OVALOCYTES SLIGHT; PLATELET COMMENT ADEQUATE; POIKILOCYTOSIS SLIGHT; TOXIC GRANULATION 1+
[2017-10-03] MEDS ORDERED: HYDROCODONE BIT/HOMATROPINE SYRUP 5 ML UDCUP PO ONE (10:30)
[2017-10-03] MEDS ORDERED: HYDROCODONE BIT/HOMATROPINE 5-1.5 MG TABLET PO ONE (11:00)
[2017-10-03 11:19] LABS: ALANINE AMINOTRANSFERASE 29 U/L (9-52); ALBUMIN 3.6 g/dL (3.5-5.0); ALKALINE PHOSPHATASE 103 U/L (38-126); ANION GAP 10 (5-19); ASPARTATE AMINO TRANSFERASE 21 U/L (14-36); BILIRUBIN,DIRECT 0.3 mg/dL (0.0-0.4); BILIRUBIN,TOTAL 0.3 mg/dL (0.2-1.3); BLOOD UREA NITROGEN 12 mg/dL (7-20); CALCIUM 8.7 mg/dL (8.4-10.2); CARBON DIOXIDE 29 mmol/L (22-30); CHLORIDE 103 mmol/L (98-107); GLUCOSE 130 mg/dL (75-110); POTASSIUM 3.9 mmol/L (3.6-5.0); SODIUM 142.3 mmol/L (137-145); TOTAL PROTEIN 6.6 g/dL (6.3-8.2)
[2017-10-03 11:25] VITALS: BP 154/64
== END 2017-10-03 12:02 | disposition home or self-care (01) ==
LOC: ER 08:29
DX: J44.1 Chronic obstructive pulmonary disease with (acute) exacerbation (principal); J02.9 Acute pharyngitis, unspecified; R06.02 Shortness of breath; R06.2 Wheezing; R05 Cough; F17.210 Nicotine dependence, cigarettes, uncomplicated; E11.9 Type 2 diabetes mellitus without complications; I10 Essential (primary) hypertension
CPT/HCPCS: 99406; 94640 ×2; 99285; 36415; 85025; 80053; 71046; J7620

== ENCOUNTER 2017-10-04 15:45 | Inpatient (IN) | payer MEDICAID ==
[2017-10-04] MEDS ORDERED: IPRATROPIUM/ALBUTEROL 0.5-2.5 MG/3 ML AMPUL NEB ONE ×2 (16:10→17:20)
--- NOTE | 2017-10-04 16:14 | ER Document Report ---
ED Medical Screen (RME) - General Chief Complaint: Shortness Of Breath Stated Complaint: SHORTNESS OF BREATH Time Seen by Provider: 10/04/17 16:09 Notes: Patient was seen here yesterday and this is her third visit to a physician in the last several days. The visits have been for shortness of breath. She is currently on prednisone inhalers cough syrup and antibiotics but states she feels no better and continues to be short of breath. Chest x-ray yesterday was unremarkable. She is PERC negative. TRAVEL OUTSIDE OF THE [place] IN LAST 30 DAYS: No - Related Data Allergies/Adverse Reactions: ofloxacin [From Floxin] Allergy (Intermediate, Verified 04/04/17 18:20) Hives Past Medical History - Social History Family history: Reviewed & Not Pertinent - Past Medical History Cardiac Medical History: Reports: Hx Hypertension Pulmonary Medical History: Reports: Hx Asthma, Hx COPD Endocrine Medical History: Reports: Hx Diabetes Mellitus Type 2 - gestational Renal/ Medical History: Denies: Hx Peritoneal Dialysis Musculoskeltal Medical History: Reports Hx Arthritis Past Surgical History: Reports: Hx Section, Hx Cholecystectomy - Immunizations Hx Diphtheria, Pertussis, Tetanus Vaccination: Yes Physical Exam - Vital signs Vitals: Temp Pulse Resp BP Pulse Ox 98.3 F 63 20 160/69 H 95 10/04/17 15:49 10/04/17 15:49 10/04/17 15:49 10/04/17 15:49 10/04/17 15:49 Course - Vital Signs Vital signs: Temp Pulse Resp BP Pulse Ox 98.3 F 63 20 160/69 H 95 10/04/17 15:49 10/04/17 15:49 10/04/17 15:49 10/04/17 15:49 10/04/17 15:49
[2017-10-04 16:39] LABS: ABSOLUTE BASOPHILS # (AUTO) 0.1 10^3/uL (0.0-0.2); ABSOLUTE EOSINOPHILS # (AUTO) 0.3 10^3/uL (0.0-0.6); ABSOLUTE LYMPHOCYTES (AUTO) 2.9 10^3/uL (0.5-4.7); ABSOLUTE NEUT (AUTO) 11.7 10^3/uL (1.7-8.2); BASOPHILS % (AUTO) 0.4 % (0-2); EOSINOPHILS % (AUTO) 2.1 % (0-6); HEMOGLOBIN 11.8 g/dL (12.0-15.5); MEAN CORPUSCULAR HGB CONC 30.3 g/dL (32.0-36.0); MEAN CORPUSCULAR VOLUME 63 fl (80-97); MONOCYTES % (AUTO) 6.5 % (3-13); PLATELET COUNT 312 10^3/uL (150-450); RED BLOOD COUNT 6.22 10^6/uL (3.72-5.28); RED CELL DISTRIBUTION WIDTH 20.5 % (11.5-14.0); TOTAL CELLS COUNTED % (AUTO) 100 %
[2017-10-04 16:56] LABS: ANION GAP 10 (5-19); BLOOD UREA NITROGEN 13 mg/dL (7-20); CALCIUM 8.7 mg/dL (8.4-10.2); CARBON DIOXIDE 33 mmol/L (22-30); CHLORIDE 102 mmol/L (98-107); GLUCOSE 100 mg/dL (75-110); POTASSIUM 4.1 mmol/L (3.6-5.0)
[2017-10-04 17:17] LABS: HYPOCHROMASIA SLIGHT; TOXIC GRANULATION SLIGHT
[2017-10-04 17:18] LABS: ANISOCYTOSIS 2+; OVALOCYTES SLIGHT; PLATELET COMMENT ADEQUATE; POIKILOCYTOSIS SLIGHT; TARGET CELLS SLIGHT; TEAR DROP CELLS SLIGHT
[2017-10-04] MEDS ORDERED: PREDNISONE 20 MG TABLET PO ONE (17:20)
[2017-10-04] MEDS ORDERED: METHYLPREDNISOLONE INJ 125 MG/2 ML SDV IV ONE (17:21)
--- NOTE | 2017-10-04 18:04 | RADIOLOGY REPORT (SQ) ---
EXAM DESCRIPTION: CHEST 2 VIEWS COMPLETED DATE/TIME: 10/04/2017 5:56 pm REASON FOR STUDY: cough, sob COMPARISON: 10/03/2017 EXAM PARAMETERS: NUMBER OF VIEWS: two views TECHNIQUE: Digital Frontal and Lateral radiographic views of the chest acquired. RADIATION DOSE: NA LIMITATIONS: none FINDINGS: LUNGS AND PLEURA: No opacities, masses or pneumothorax. No pleural effusion. MEDIASTINUM AND HILAR STRUCTURES: No masses or contour abnormalities. HEART AND VASCULAR STRUCTURES: Heart normal size. No evidence for failure. BONES: No acute findings. HARDWARE: None in the chest. OTHER: No other significant finding. IMPRESSION: NO ACUTE RADIOGRAPHIC FINDING IN THE CHEST. TECHNICAL DOCUMENTATION: JOB ID: [id number] [employer]- All Rights Reserved Reading location - IP/workstation name: [email or web address]
[2017-10-04 18:10] LABS: VENOUS BLOOD BASE EXCESS 6.3 mmol/L; VENOUS BLOOD HCO3 33.7 mmol/L (20-32); VENOUS BLOOD PCO2 63.3 mmHg (35-63); VENOUS BLOOD PH 7.34 (7.30-7.42)
[2017-10-04] MEDS ORDERED: ALBUTEROL SULFATE 0.083% NEB 2.5 MG/3 ML AMPUL NEB ONE ×3 (18:11→19:39)
--- NOTE | 2017-10-04 19:09 | ER Document Report ---
ED Respiratory Problem - General Mode of Arrival: Ambulatory Information source: Patient TRAVEL OUTSIDE OF THE [place] IN LAST 30 DAYS: No - HPI Patient complains to provider of: COPD, Cough, Short of breath Onset: Other - 5 days Duration: Continuous Quality of pain: Other - Tightness Pain Level: 1 Context: Hx COPD Chest pain/discomfort: Tightness Cough: Nonproductive Associated symptoms: Cough, Short of breath, Wheezing Similar symptoms previously: Yes Recently seen / treated by doctor: Yes <TJ PINEDA - Last Filed: 10/04/17 19:02> <DARIAN CHAPA - Last Filed: 10/04/17 22:20> - General Chief Complaint: Shortness Of Breath Stated Complaint: SHORTNESS OF BREATH Time Seen by Provider: 10/04/17 16:09 Notes: Patient presents complaining of shortness of breath with wheezing. Patient states that she was seen 5 days ago at the [facility] and given a prescription for Hycodan, prednisone and doxycycline. Patient states that she was here yesterday for the same complaint and given a prescription for Tessalon Perles. Patient denies any fever. Patient does complain of some chest discomfort with coughing. Patient complains of persistent shortness of breath. Patient does acknowledge that she smokes a pack of cigarettes a day but states she has not smoked any for the past 4 days. (TJ PINEDA) - Related Data Allergies/Adverse Reactions: ofloxacin [From Floxin] Allergy (Intermediate, Verified 04/04/17 18:20) Hives Past Medical History - General Information source: Patient - Social History Smoking Status: Current Every Day Smoker Frequency of alcohol use: None Drug Abuse: None Occupation: none Family History: Reviewed & Not Pertinent Patient has suicidal ideation: No Patient has homicidal ideation: No - Past Medical History Cardiac Medical History: Reports: Hx Hypertension Pulmonary Medical History: Reports: Hx Asthma, Hx COPD Endocrine Medical History: Reports: Hx Diabetes Mellitus Type 2 - gestational Renal/ Medical History: Denies: Hx Peritoneal Dialysis Musculoskeltal Medical History: Reports Hx Arthritis Past Surgical History: Reports: Hx Section, Hx Cholecystectomy - Immunizations Hx Diphtheria, Pertussis, Tetanus Vaccination: Yes <TJ PINEDA - Last Filed: 10/04/17 19:02> Review of Systems - Review of Systems Constitutional: No symptoms reported. denies: Fever EENT: No symptoms reported Cardiovascular: No symptoms reported Respiratory: Cough, Short of breath, Wheezing Gastrointestinal: denies: Nausea, Vomiting Genitourinary: No symptoms reported Female Genitourinary: No symptoms reported Musculoskeletal: No symptoms reported. denies: Back pain Skin: No symptoms reported Hematologic/Lymphatic: No symptoms reported Neurological/Psychological: No symptoms reported <TJ PINEDA - Last Filed: 10/04/17 19:02> Physical Exam - General General appearance: Appears well, Alert In distress: Mild - HEENT Head: Normocephalic, Atraumatic Eyes: Normal Conjunctiva: Normal Mouth/Lips: Normal Mucous membranes: Normal Pharynx: Erythema. No: Peritonsillar abscess, Tonsillar hypertrophy Neck: Normal, Supple. No: Lymphadenopathy - Respiratory Respiratory status: Tachypnea Chest status: Pain with cough Breath sounds: Nonproductive cough, Wheezing Chest palpation: Normal - Cardiovascular Rhythm: Regular. No: Tachycardia Heart sounds: S1 appreciated, S2 appreciated Murmur: No - Back Back: Normal, Nontender. No: CVA tenderness - Extremities General upper extremity: Normal inspection, Normal strength General lower extremity: Normal inspection, Normal strength - Neurological Neuro grossly intact: Yes Cognition: Normal Gantt Coma Scale Eye Opening: Spontaneous Gantt Coma Scale Verbal: Oriented Gantt Coma Scale Motor: Obeys Commands Gantt Coma Scale Total: 15 - Psychological Associated symptoms: Normal affect, Normal mood - Skin Skin Temperature: Warm Skin Moisture: Dry Skin Color: Normal <TJ PINEDA - Last Filed: 10/04/17 19:02> - Vital signs Vitals: Temp Pulse Resp BP Pulse Ox 98.3 F 63 20 160/69 H 95 10/04/17 15:49 10/04/17 15:49 10/04/17 15:49 10/04/17 15:49 10/04/17 15:49 Course - Laboratory Result Diagrams: 10/04/17 16:18 10/04/17 16:18 - Diagnostic Test Radiology reviewed: Reports reviewed <TJ PINEDA - Last Filed: 10/04/17 19:02> - Laboratory Result Diagrams: 10/04/17 16:18 10/04/17 16:18 <DARIAN CHAPA - Last Filed: 10/04/17 22:20> - Re-evaluation Re-evalutation: 10/04/17 18:30 Patient continues with diffuse bilateral medicines ordered. 10/04/17 19:[address] Garcia who advises giving patient 2 g of magnesium and having her follow-up with a information management officer as an outpatient. 10/04/17 19:12 Report and handoff given to calling her C Yazmin GRIGSBY (TJ PINEDA) 10/04/17 22:20 Patient remains tachypneic with coarse breath sounds despite multiple medications administered here. Patient ambulated maintaining a sat of 89% with tachypnea. Patient was been admitted to the hospitalist service for COPD exacerbation. Patient agrees with plan. (DARIAN CHAPA) - Vital Signs Vital signs: Temp Pulse Resp BP Pulse Ox 98.3 F 63 24 H 171/65 H 95 10/04/17 15:49 10/04/17 15:49 10/04/17 21:02 10/04/17 21:02 10/04/17 21:02 - Laboratory Laboratory results interpreted by me: 10/04/17 10/04/17 10/04/17 16:18 16:18 16:18 WBC 16.0 H RBC 6.22 H Hgb 11.8 L MCV 63 L MCH 19.0 L MCHC 30.3 L RDW 20.5 H Absolute Neutrophils 11.7 H VBG pCO2 VBG HCO3 Carbon Dioxide 33 H NT-Pro-B Natriuret Pep 134 H 10/04/17 17:43 WBC RBC Hgb MCV MCH MCHC RDW Absolute Neutrophils VBG pCO2 63.3 H VBG HCO3 33.7 H Carbon Dioxide NT-Pro-B Natriuret Pep 10/04/17 19:04 Labs- Entire Visit 10/04/17 10/04/17 10/04/17 16:18 16:18 16:18 WBC 16.0 H RBC 6.22 H Hgb 11.8 L Hct 39.0 MCV 63 L MCH 19.0 L MCHC 30.3 L RDW 20.5 H Plt Count 312 Seg Neutrophils % 73.0 Lymphocytes % 18.0 Monocytes % 6.5 Eosinophils % 2.1 Basophils % 0.4 Absolute Neutrophils 11.7 H Absolute Lymphocytes 2.9 Absolute Monocytes 1.0 Absolute Eosinophils 0.3 Absolute Basophils 0.1 Toxic Granulation SLIGHT Platelet Comment ADEQUATE Hypochromasia SLIGHT Poikilocytosis SLIGHT Anisocytosis 2+ Microcytosis 3+ Target Cells SLIGHT Tear Drop Cells SLIGHT Ovalocytes SLIGHT VBG pH VBG pCO2 VBG HCO3 VBG Base Excess Sodium 145.0 Potassium 4.1 Chloride 102 Carbon Dioxide 33 H Anion Gap 10 BUN 13 Creatinine 0.57 Est GFR ( Amer) > 60 Est GFR (Non-Af Amer) > 60 Glucose 100 Calcium 8.7 Magnesium NT-Pro-B Natriuret Pep 134 H 10/04/17 10/04/17 16:18 17:43 WBC RBC Hgb Hct MCV MCH MCHC RDW Plt Count Seg Neutrophils % Lymphocytes % Monocytes % Eosinophils % Basophils % Absolute Neutrophils Absolute Lymphocytes Absolute Monocytes Absolute Eosinophils Absolute Basophils Toxic Granulation Platelet Comment Hypochromasia Poikilocytosis Anisocytosis Microcytosis Target Cells Tear Drop Cells Ovalocytes VBG pH 7.34 VBG pCO2 63.3 H VBG HCO3 33.7 H VBG Base Excess 6.3 Sodium Potassium Chloride Carbon Dioxide Anion Gap BUN Creatinine Est GFR ( Amer) Est GFR (Non-Af Amer) Glucose Calcium Magnesium 2.2 NT-Pro-B Natriuret Pep (TJ PINEDA) Discharge <TJ PINEDA - Last Filed: 10/04/17 19:02> - Discharge Admitting Provider: Hospitalist Unit Admitted: Telemetry <DARIAN CHAPA - Last Filed: 10/04/17 22:20> - Discharge Clinical Impression: COPD exacerbation Condition: Stable Disposition: ADMITTED INPATIENT
[2017-10-04] MEDS: MAGNESIUM SULFATE/D5W 1 GM/100 ML RTUPB IV SCH ×3 (19:22→19:40)
[2017-10-04 22:07] LABS: VENOUS BLOOD BASE EXCESS 2.3 mmol/L; VENOUS BLOOD HCO3 27.2 mmol/L (20-32); VENOUS BLOOD PCO2 43.2 mmHg (35-63); VENOUS BLOOD PH 7.42 (7.30-7.42)
[2017-10-04] MEDS ORDERED: ACETAMINOPHEN 325 MG TABLET PO PRN (22:35)
[2017-10-04] MEDS ORDERED: PROMETHAZINE HCL INJ 25 MG/1 ML VIAL IV PRN (22:35)
[2017-10-04] MEDS ORDERED: ALBUTEROL SULFATE 0.083% NEB 2.5 MG/3 ML AMPUL NEB PRN (22:35)
[2017-10-04] MEDS ORDERED: GUAIFENESIN/D-METHORPHAN (200-20 MG) SYRUP 10 ML PO PRN (22:43)
[2017-10-04] MEDS ORDERED: DOXYCYCLINE HYCLATE 100 MG TABLET PO ONE (23:00)
[2017-10-05] MEDS: IPRATROPIUM/ALBUTEROL 0.5-2.5 MG/3 ML AMPUL NEB SCH ×5 (01:52→20:07)
[2017-10-05] MEDS ORDERED: NYSTATIN 500000 UNIT/5 ML UDCUP PO ONE (02:30)
--- NOTE | 2017-10-05 02:34 | PDOC H&P ---
History of Present Illness Admission Date/PCP: 10/04/17 22:29 Patient complains of: Chest tightness and worsening shortness of breath since yesterday. History of Present Illness: ERVIN MCCORMACK is a 42 year old morbidly obese female smoker with history of COPD/chronic bronchitis and probable obstructive sleep apnea was admitted with above-mentioned complaints. The patient denies any fever or chills but complains of sore throat and runny nose with her coughing spells. She also has yellowish to greenish sputum but she denies any sick contact or recent travels. She never received flu vaccine. She has intermittent leg swelling, 3 pillow orthopnea but no PND. She is usually able to ambulate independently. According to the patient, her symptoms started about a week ago when she choked on a popcorn kernel. On 09/29/2017, she started having sore throat and she noticed some "white spots in the back of her throat". She went to urgent care where she tested negative for flu and strep throat. She was given Prednisone and Doxycycline. She said that she was also using her son's neb treatments with some improvement in her symptoms. She presented to this ED yesterday with the same complaints. A chest x-ray was done which was negative so she was given prescription for Mucinex and Tessalon Perls and dischaged home. In the ED, her temperature was 98.3, heart rate 63, respiratory rate 20, blood pressure 160/69 with oxygen saturation of 95% on room air. Her WBC was 16.0. A repeat chest x-ray was done which was negative for any acute findings. She received 3 Albuterol nebs, 2 Atrovent nebs, 125 mg Solu-Medrol 1 with improvement in her symptoms. Past Medical History Medical History: Other - According to the patient and based on previous records. Cardiac Medical History: Reports: Hypertension Pulmonary Medical History: Reports: Bronchitis, Chronic Obstructive Pulmonary Disease (COPD) Endocrine Medical History: Reports: Diabetes Mellitus Type 2 - gestational Musculoskeltal Medical History: Reports: Arthritis Past Surgical History Past Surgical History: Reports: Section - x1, Cholecystectomy, Tubal Ligation Social History Smoking Status: Current Every Day Smoker Cigarettes Packs Per Day: 1.5 - 1-1.5 packs a day for more than 20 years. Frequency of Alcohol Use: Occasional - Wine coolers. Hx Recreational Drug Use: No - Advance Directive Resuscitation Status: Full Code Family History Parental Family History Reviewed: Yes - Mother: Hypertension. Father: Diabetes. Paternal grandmother: CHF. Children Family History Reviewed: No Sibling(s) Family History Reviewed.: Yes Medication/Allergy Home Medications: Prednisone [Deltasone 20 mg Tablet] 3 tab PO DAILY 5 Days tablet 03/31/17 Magnesium Citrate [Citrate of Magnesia 296 ml Bottle] 296 ml PO ONCE PRN #1 bottle 04/04/17 Polyethylene Glycol 3350 [Miralax] 1 cap PO DAILY #527 powder 04/04/17 Benzonatate [Tessalon Perles 100 mg Capsule] 100 mg PO Q8HP PRN #40 capsule Guaifenesin [Mucinex] 600 mg PO BID #20 tab.er.12h 10/03/17 Allergies/Adverse Reactions: ofloxacin [From Floxin] Allergy (Intermediate, Verified 04/04/17 18:20) Hives Review of Systems ROS unobtainable: Other - Pertinent positives and negatives as detailed in the HPI. She denied any abdominal pain, nausea vomiting, diarrhea or constipation or any urinary symptoms. She also denied any weakness. Physical Exam Vital Signs: Temp Pulse Resp BP Pulse Ox 98.3 F 63 24 H 171/65 H 95 10/04/17 15:49 10/04/17 15:49 10/04/17 21:02 10/04/17 21:02 10/04/17 21:02 General appearance: PRESENT: no acute distress, morbidly obese, well-developed, well-nourished Head exam: PRESENT: atraumatic, normocephalic Eye exam: PRESENT: PERRLA Mouth exam: PRESENT: moist, neck supple, other - oral thrush Neck exam: PRESENT: full ROM. ABSENT: JVD Respiratory exam: PRESENT: decreased breath sounds, rhonchi, wheezes. ABSENT: rales Cardiovascular exam: PRESENT: RRR, +S1, +S2 Pulses: PRESENT: normal dorsalis pedis pul GI/Abdominal exam: PRESENT: normal bowel sounds, soft. ABSENT: distended, rebound, tenderness Rectal exam: PRESENT: deferred Extremities exam: PRESENT: pedal edema, +1 edema Musculoskeletal exam: PRESENT: full ROM Neurological exam: PRESENT: alert, altered, awake. ABSENT: motor sensory deficit Skin exam: PRESENT: warm. ABSENT: dry, erythema, rash Results Laboratory Results: CBC: WBC 6.0, hemoglobin 11.8, hematocrit 39.0, MCV 63, RDW 20.5, platelets 312. VB.34/63.3 Repeat VBG 7.42/43.2. BMP: Sodium 145, potassium 4.1, chloride 102, bicarb 33, anion gap 10, BUN 13, creatinine 0.57, glucose 100, calcium 8.7. Impressions: Chest X-Ray 10/04/17 17:21 IMPRESSION: NO ACUTE RADIOGRAPHIC FINDING IN THE CHEST. Assessment & Plan - Diagnosis (1) COPD exacerbation Is this a current diagnosis for this admission?: Yes Plan: Chest x-ray reviewed. Will continue scheduled duonebs, IV Solu-Medrol and doxycycline. According to the patient, she tested negative for flu and strep throat few days ago. The patient was strongly advised to stop smoking. (2) Essential hypertension Is this a current diagnosis for this admission?: Yes Plan: She is not on any BP home medications. Will monitor her blood pressure and start BP medications as indicated. (3) Obstructive sleep apnea Is this a current diagnosis for this admission?: Yes Plan: Most likely. She needs further assessment with sleep studies as outpatient. (4) Smoker Is this a current diagnosis for this admission?: Yes Plan: 1- 1 1/2 packs a day for more than 20 years. She is not motivated to quit. She refused nicotine patch. - Time Time Spent: 50 to 70 Minutes - Inpatient Certification Based on my medical assessment, after consideration of the patient's comorbidities, presenting symptoms, or acuity I expect that the services needed warrant INPATIENT care.: Yes I certify that my determination is in accordance with my understanding of Medicare's requirements for reasonable and necessary INPATIENT services [42 CFR 412.3e].: Yes
[2017-10-05 04:53] LABS: HEMATOCRIT 37.6 % (36.0-47.0); HEMOGLOBIN 11.5 g/dL (12.0-15.5); MEAN CORPUSCULAR HEMOGLOBIN 19.1 pg (27.0-33.4); MEAN CORPUSCULAR HGB CONC 30.5 g/dL (32.0-36.0); MEAN CORPUSCULAR VOLUME 63 fl (80-97); PLATELET COUNT 302 10^3/uL (150-450); WHITE BLOOD COUNT 16.5 10^3/uL (4.0-10.5)
[2017-10-05 05:05] LABS: ANION GAP 13 (5-19); BLOOD UREA NITROGEN 14 mg/dL (7-20); CALCIUM 8.8 mg/dL (8.4-10.2); CARBON DIOXIDE 27 mmol/L (22-30); CHLORIDE 102 mmol/L (98-107); GLUCOSE 221 mg/dL (75-110); POTASSIUM 4.8 mmol/L (3.6-5.0); SODIUM 142.3 mmol/L (137-145)
[2017-10-05] MEDS: METHYLPREDNISOLONE INJ 40 MG/1 ML SDV IV SCH ×2 (06:41→13:27)
[2017-10-05] MEDS: DOXYCYCLINE HYCLATE 100 MG TABLET PO SCH ×2 (09:53→21:58)
[2017-10-05] MEDS: NYSTATIN 500000 UNIT/5 ML UDCUP PO SCH ×4 (09:54→21:59)
[2017-10-05] MEDS ORDERED: LEVALBUTEROL HCL NEB 0.63 MG/3 ML AMPUL NEB PRN (12:49)
[2017-10-05] MEDS ORDERED: IPRATROPIUM/ALBUTEROL 0.5-2.5 MG/3 ML AMPUL NEB PRN (12:50)
[2017-10-05] MEDS ORDERED: BENZONATATE 100 MG CAPSULE PO PRN (12:53)
[2017-10-05] MEDS ORDERED: BENZOCAINE 20% AEROSOL SPRAY 60 GM TP PRN (17:02)
[2017-10-05] MEDS ORDERED: BENZOCAINE/MENTHOL SORE THROAT LOZENGE BUCCAL PRN (17:02)
--- NOTE | 2017-10-05 17:20 | PDOC PROGRESS REPORT ---
Subjective Progress Note for:: 10/05/17 Subjective:: ERVIN MCCORMACK is a 42 year old female who was admitted10/04/2017 for shortness of breath. She has a PMH of COPD, FABIO, morbid obesity, smoking 1-1.5 packs per day for 'many years' Patient seen this morning on rounds, she is sitting up in bed on supplemental oxygen, which she does not typically wear at home. The patient complains of shortness of breath with any activity, nonproductive cough, and sore throat. She denies chest pain, fever or chills. Upon assessment, wheezing can be auscultated in all lung cordero. The patient is able to speak in full sentences, however, she needs to stop and take a breath between each sentence. Reason For Visit: SHORTNESS OF BREATH. Physical Exam Vital Signs: Temp Pulse Resp BP Pulse Ox 98.2 F 58 L 16 163/58 H 95 10/05/17 11:22 10/05/17 14:18 10/05/17 14:18 10/05/17 11:22 10/05/17 14:18 Intake & Output 10/04/17 10/05/17 10/06/17 06:59 06:59 06:59 Intake Total 360 660 Output Total 0 Balance 360 660 Weight 156.7 kg General appearance: PRESENT: morbidly obese Eye exam: PRESENT: conjunctiva pink, PERRLA Mouth exam: PRESENT: moist Teeth exam: PRESENT: poor dentation Neck exam: PRESENT: full ROM Respiratory exam: PRESENT: symmetrical, unlabored, wheezes Cardiovascular exam: PRESENT: +S1, +S2 Pulses: PRESENT: normal radial pulses, normal dorsalis pedis pul Vascular exam: PRESENT: normal capillary refill GI/Abdominal exam: PRESENT: normal bowel sounds, soft. ABSENT: tenderness Rectal exam: PRESENT: deferred Extremities exam: PRESENT: full ROM Musculoskeletal exam: PRESENT: ambulatory, full ROM Neurological exam: PRESENT: alert, awake, oriented to person, oriented to place , oriented to time, oriented to situation Psychiatric exam: PRESENT: appropriate affect Skin exam: PRESENT: intact, normal color Results Laboratory Results: 10/05/17 04:35 10/05/17 04:35 10/05/17 10/05/17 04:35 04:35 WBC 16.5 H RBC 6.00 H Hgb 11.5 L Hct 37.6 MCV 63 L MCH 19.1 L MCHC 30.5 L RDW 21.0 H Plt Count 302 Sodium 142.3 Potassium 4.8 Chloride 102 Carbon Dioxide 27 Anion Gap 13 BUN 14 Creatinine 0.54 Est GFR ( Amer) > 60 Est GFR (Non-Af Amer) > 60 Glucose 221 H Calcium 8.8 Impressions: Chest X-Ray 10/04/17 17:21 IMPRESSION: NO ACUTE RADIOGRAPHIC FINDING IN THE CHEST. Status: Imported from PACS Assessment & Plan - Diagnosis (1) COPD exacerbation Is this a current diagnosis for this admission?: Yes Plan: Exacerbation likely secondary to acute bronchitis Patient presents with SOB, cough, and wheezing As needed supplemental oxygen for SPO2>88% CXR benign Of note, the patient tested negative for the flu and strep, however, tonsilar swelling and very mild exudate seen in the back of the throat. Repeat throat culture and rapid strep pending PFT pending IV solumedrol and scheduled Duonebs Initiate Spiriva and serevent Pulmonology consulted, appreciate their recommendations (2) Essential hypertension Is this a current diagnosis for this admission?: Yes Plan: Patient denies a history of hypertension. She is not on any blood pressure medications. She remains slightly HYPERtensive since admission Will initiate low dose Norvasc PRN hydralazine for SBP > 170 (3) Morbid obesity with BMI of 50.0-59.9, adult Is this a current diagnosis for this admission?: Yes Plan: The patient is morbidly obese with a BMI of 52.5 Will need to exercise discretion with dietary requests. Please patient on low-fat diet (4) Obstructive sleep apnea Is this a current diagnosis for this admission?: Yes Plan: Patient does not have an official diagnosis of obstructive sleep apnea. FABIO sleeping patterns observed by shift manager nursing staff Continue supplemental oxygen as needed. No plan for CPAP at this time. Patient will require sleep studies as an outpatient (5) Smoker Is this a current diagnosis for this admission?: Yes Plan: Patient endorses a 1 to 1.5 pack per day smoking habit for 20 years She is NOT motivated to quit. Patient refused nicotine patch (6) Sore throat Is this a current diagnosis for this admission?: Yes Plan: Reason endorses sore throat. Upon assessment, redness to the back of the throat as well as tonsillar erythema and very mild swelling. As needed throat lozenges and Hurricaine spray Throat culture and rapid strep pending - Time Time Spent with patient: 15-24 minutes Medications reviewed and adjusted accordingly: Yes Anticipated discharge: Home Within: within 48 hours - Inpatient Certification Based on my medical assessment, after consideration of the patient's comorbidities, presenting symptoms, or acuity I expect that the services needed warrant INPATIENT care.: Yes I certify that my determination is in accordance with my understanding of Medicare's requirements for reasonable and necessary INPATIENT services [42 CFR 412.3e].: Yes Medical Necessity: Risk of Complication if Not Cared For in Hospital - Plan Summary Plan Summary: Ultimately, the plan is to discharge the patient home with medications to control her COPD. This may prove to be difficult as the patient does not have health insurance nor does she have motivation to quit smoking.
[2017-10-05] MEDS ORDERED: METHYLPREDNISOLONE INJ 40 MG/1 ML SDV IV SCH (18:00)
[2017-10-05] MEDS: SALMETEROL XINAFOATE DISKUS 50 MCG/1 DOSE 28 DOSE IH SCH (18:45)
[2017-10-05] MEDS: TIOTROPIUM BROMIDE DPI 5 CAP/KIT (18 MCG/CAP) IH SCH (18:45)
[2017-10-05] MEDS: METHYLPREDNISOLONE INJ 125 MG/2 ML SDV IV SCH (21:58)
[2017-10-05] MEDS: GUAIFENESIN 600 MG TABLET.SA PO SCH (21:58)
[2017-10-05] MEDS: AMLODIPINE BESYLATE 5 MG TABLET PO SCH (21:59)
[2017-10-06] MEDS: IPRATROPIUM/ALBUTEROL 0.5-2.5 MG/3 ML AMPUL NEB SCH ×7 (00:01→23:06)
[2017-10-06] MEDS: METHYLPREDNISOLONE INJ 125 MG/2 ML SDV IV SCH ×4 (03:42→21:09)
[2017-10-06] MEDS: SALMETEROL XINAFOATE DISKUS 50 MCG/1 DOSE 28 DOSE IH SCH ×2 (06:24→18:36)
[2017-10-06] MEDS: BUDESONIDE NEB 0.5 MG/2 ML AMPUL NEB SCH ×2 (08:36→20:10)
[2017-10-06 09:22] LABS: HEMATOCRIT 37.1 % (36.0-47.0); HEMOGLOBIN 11.4 g/dL (12.0-15.5); MEAN CORPUSCULAR HEMOGLOBIN 19.2 pg (27.0-33.4); MEAN CORPUSCULAR HGB CONC 30.7 g/dL (32.0-36.0); MEAN CORPUSCULAR VOLUME 63 fl (80-97); PLATELET COUNT 305 10^3/uL (150-450); RED BLOOD COUNT 5.92 10^6/uL (3.72-5.28); RED CELL DISTRIBUTION WIDTH 20.3 % (11.5-14.0); WHITE BLOOD COUNT 21.8 10^3/uL (4.0-10.5)
[2017-10-06 09:34] LABS: ANION GAP 9 (5-19); BLOOD UREA NITROGEN 14 mg/dL (7-20); CALCIUM 9.1 mg/dL (8.4-10.2); CARBON DIOXIDE 29 mmol/L (22-30); CHLORIDE 100 mmol/L (98-107); GLUCOSE 283 mg/dL (75-110); PHOSPHORUS 3.2 mg/dL (2.5-4.5); POTASSIUM 5.4 mmol/L (3.6-5.0); SODIUM 138.4 mmol/L (137-145)
[2017-10-06 09:51] LABS: ABSOLUTE LYMPHOCYTES# (MANUAL) 0.9 10^3/uL (0.5-4.7); ABSOLUTE MONOCYTES # (MANUAL) 0.9 10^3/uL (0.1-1.4); ABSOLUTE NEUTROPHILS# (MANUAL) 20.1 10^3/uL (1.7-8.2); BAND NEUTROPHILS % (MANUAL) 1 % (3-5); BASOPHILS % (MANUAL) 0 % (0-2); EOSINOPHILS % (MANUAL) 0 % (0-6); LYMPHOCYTES % (MANUAL) 4 % (13-45); MONOCYTES % (MANUAL) 4 % (3-13); SEGMENTED NEUTROPHILS % (MAN) 91 % (42-78); TOTAL CELLS COUNTED 100
[2017-10-06 09:52] LABS: ANISOCYTOSIS 2+; HYPOCHROMASIA 2+; OVALOCYTES SLIGHT; PLATELET COMMENT ADEQUATE; POIKILOCYTOSIS SLIGHT; SCHISTOCYTES SLIGHT; TOXIC GRANULATION 1+
[2017-10-06 10:10] LABS: ARTERIAL BLOOD H2CO3 1.24 mmol/L (1.05-1.35); ARTERIAL BLOOD HCO3 28.2 mmol/L (20-26); ARTERIAL BLOOD O2 SATURATION 97.8 % (94-98); ARTERIAL BLOOD PCO2 41.1 mmHg (35-45); ARTERIAL BLOOD PH 7.46 (7.35-7.45); ARTERIAL BLOOD PO2 99.2 mmHg (80-100); ARTERIAL BLOOD TOTAL CO2 29.5 mmol/L (21-25)
[2017-10-06 10:13] LABS: ARTERIAL BLOOD FIO2 3
[2017-10-06] MEDS: GUAIFENESIN 600 MG TABLET.SA PO SCH ×2 (11:03→21:09)
[2017-10-06] MEDS: DOXYCYCLINE HYCLATE 100 MG TABLET PO SCH ×2 (11:04→21:09)
[2017-10-06] MEDS: NYSTATIN 500000 UNIT/5 ML UDCUP PO SCH ×4 (11:04→21:08)
--- NOTE | 2017-10-06 17:37 | PDOC PROGRESS REPORT ---
Subjective Progress Note for:: 10/06/17 Subjective:: ERVIN MCCORMACK is a 42 year old female who was admitted10/04/2017 for shortness of breath. She has a PMH of COPD, FABIO, morbid obesity, smoking 1-1.5 packs per day for 'many years' Patient seen this morning on rounds, she is sitting up in bed on supplemental oxygen via nasal cannula. The patient complains of shortness of breath with any activity, nonproductive cough, and sore throat. She denies chest pain, fever or chills. Upon assessment, wheezing can be auscultated in all lung cordero, despite starting IV solumedrol yesterday. However, the patient is now able to speak in full sentences without pause, which she was not able to do yesterday. Reason For Visit: SHORTNESS OF BREATH. Physical Exam Vital Signs: Temp Pulse Resp BP Pulse Ox 98.2 F 54 L 15 151/65 H 97 10/06/17 16:35 10/06/17 16:35 10/06/17 16:35 10/06/17 16:35 10/06/17 16:35 Pulse Oximeter Nocturnal Start: 10/06/17 09: 28 Freq: RTQ4 Status: Active Document 10/06/17 12:22 [facility] (Rec: 10/06/17 13:14 [facility] [email or web address]) Nocturnal Pulse Oximetry Equipment Usage Equipment Standby Continuous SpO2 Machine # not in room yet Intake & Output 10/05/17 10/06/17 10/07/17 06:59 06:59 06:59 Intake Total 360 1020 Output Total 0 300 Balance 360 720 Weight 156.7 kg 155.6 kg General appearance: PRESENT: morbidly obese Eye exam: PRESENT: conjunctiva pink, PERRLA Mouth exam: PRESENT: moist Teeth exam: PRESENT: poor dentation Neck exam: PRESENT: full ROM Respiratory exam: PRESENT: symmetrical, unlabored, wheezes Cardiovascular exam: PRESENT: +S1, +S2 Pulses: PRESENT: normal radial pulses, normal dorsalis pedis pul Vascular exam: PRESENT: normal capillary refill GI/Abdominal exam: PRESENT: hernia - ventral, normal bowel sounds, soft. ABSENT : tenderness Rectal exam: PRESENT: deferred Extremities exam: PRESENT: full ROM. ABSENT: pedal edema Musculoskeletal exam: PRESENT: ambulatory, full ROM Neurological exam: PRESENT: alert, awake, oriented to person, oriented to place , oriented to time, oriented to situation Psychiatric exam: PRESENT: appropriate affect Skin exam: PRESENT: dry, intact, normal color, warm Results Laboratory Results: 10/06/17 08:51 10/06/17 08:51 10/06/17 10/06/17 10/06/17 08:51 08:51 10:00 WBC 21.8 H RBC 5.92 H Hgb 11.4 L Hct 37.1 MCV 63 L MCH 19.2 L MCHC 30.7 L RDW 20.3 H Plt Count 305 Seg Neutrophils % Not Reportable Lymphocytes % Not Reportable Monocytes % Not Reportable Eosinophils % Not Reportable Basophils % Not Reportable Absolute Neutrophils Not Reportable Absolute Lymphocytes Not Reportable Absolute Monocytes Not Reportable Absolute Eosinophils Not Reportable Absolute Basophils Not Reportable Carbonic Acid 1.24 HCO3/H2CO3 Ratio 22:1 ABG pH 7.46 H ABG pCO2 41.1 ABG pO2 99.2 ABG HCO3 28.2 H ABG O2 Saturation 97.8 ABG Base Excess 4.0 FiO2 3 Sodium 138.4 Potassium 5.4 H Chloride 100 Carbon Dioxide 29 Anion Gap 9 BUN 14 Creatinine 0.55 Est GFR ( Amer) > 60 Est GFR (Non-Af Amer) > 60 Glucose 283 H Calcium 9.1 Phosphorus 3.2 Magnesium 2.5 H Impressions: Chest X-Ray 10/04/17 17:21 IMPRESSION: NO ACUTE RADIOGRAPHIC FINDING IN THE CHEST. Status: Imported from PACS Assessment & Plan - Diagnosis (1) COPD exacerbation Is this a current diagnosis for this admission?: Yes Plan: Exacerbation likely secondary to acute bronchitis Patient presents with SOB, cough, and wheezing As needed supplemental oxygen for SPO2>88% CXR benign Of note, the patient tested negative for the flu and strep a few weeks ago, repeat rapid strep negative. Throat culture pending. PFT completed yesterday, demonstrates severe obstructive pulmonary disease. Given the patient's persistent wheezing, increased IV solumedrol dose and frequency to 60 mg every 6 hours. Continue scheduled Duonebs Continue Spiriva and serevent Pulmonology consulted, patient evaluated by Dr. Borges today. Awaiting recommendations. (2) Essential hypertension Is this a current diagnosis for this admission?: Yes Plan: Patient denies a history of hypertension. She is not on any blood pressure medications. She remains slightly HYPERtensive since admission, despite initiating low dose Norvasc Will increase Norvasc dose in hopes of achieving better control of her blood pressure PRN IV hydralazine for SBP > 170 (3) Morbid obesity with BMI of 50.0-59.9, adult Is this a current diagnosis for this admission?: Yes Plan: The patient is morbidly obese with a BMI of 52.5 Will need to exercise discretion with dietary requests. Please patient on low-fat diet (4) Obstructive sleep apnea Is this a current diagnosis for this admission?: Yes Plan: Patient does not have an official diagnosis of obstructive sleep apnea. FABIO sleeping patterns observed by police shift commander nursing staff. Patient oftentimes becomes bradycardic when sleeping. Nighttime continuous pulse oximetry ordered. Initiate CPAP QHS Continue supplemental oxygen as needed. Patient will require sleep studies as an outpatient (5) Smoker Is this a current diagnosis for this admission?: Yes Plan: Patient endorses a 1 to 1.5 pack per day smoking habit for 20 years She is NOT motivated to quit. Patient refused nicotine patch (6) Sore throat Is this a current diagnosis for this admission?: Yes Plan: Reason endorses sore throat. Upon assessment, redness to the back of the throat as well as tonsilar erythema and very mild swelling. As needed throat lozenges and Hurricane spray Throat culture pending Rapid strep negative - Time Time Spent with patient: 15-24 minutes Medications reviewed and adjusted accordingly: Yes Anticipated discharge: Home Within: within 72 hours - Inpatient Certification Based on my medical assessment, after consideration of the patient's comorbidities, presenting symptoms, or acuity I expect that the services needed warrant INPATIENT care.: Yes I certify that my determination is in accordance with my understanding of Medicare's requirements for reasonable and necessary INPATIENT services [42 CFR 412.3e].: Yes Medical Necessity: Need for Nebulizer Therapy and Monitoring of Response, Risk of Complication if Not Cared For in Hospital - Plan Summary Plan Summary: Ultimately, the plan is to discharge the patient home. At this point in time, it is unclear whether she will need continuous O2 post discharge.
[2017-10-06] MEDS ORDERED: IBUPROFEN 800 MG TABLET PO ONE (18:00)
[2017-10-06] MEDS: TIOTROPIUM BROMIDE DPI 5 CAP/KIT (18 MCG/CAP) IH SCH (18:36)
[2017-10-06] MEDS: AMLODIPINE BESYLATE 5 MG TABLET PO SCH (21:09)
[2017-10-07] MEDS ORDERED: IBUPROFEN 600 MG TABLET PO PRN
[2017-10-07] MEDS: METHYLPREDNISOLONE INJ 125 MG/2 ML SDV IV SCH ×4 (02:44→21:17)
[2017-10-07] MEDS: IPRATROPIUM/ALBUTEROL 0.5-2.5 MG/3 ML AMPUL NEB SCH ×6 (04:43→23:31)
[2017-10-07] MEDS: SALMETEROL XINAFOATE DISKUS 50 MCG/1 DOSE 28 DOSE IH SCH ×2 (06:45→18:03)
[2017-10-07] MEDS: BUDESONIDE NEB 0.5 MG/2 ML AMPUL NEB SCH ×2 (08:11→19:46)
[2017-10-07] MEDS: DOXYCYCLINE HYCLATE 100 MG TABLET PO SCH (09:45)
[2017-10-07] MEDS: NYSTATIN 500000 UNIT/5 ML UDCUP PO SCH ×4 (09:45→21:17)
[2017-10-07] MEDS: GUAIFENESIN 600 MG TABLET.SA PO SCH ×2 (09:45→21:17)
[2017-10-07 10:16] LABS: HEMOGLOBIN 12.4 g/dL (12.0-15.5); MEAN CORPUSCULAR HEMOGLOBIN 18.9 pg (27.0-33.4); MEAN CORPUSCULAR HGB CONC 30.2 g/dL (32.0-36.0); MEAN CORPUSCULAR VOLUME 63 fl (80-97); PLATELET COUNT 388 10^3/uL (150-450); RED BLOOD COUNT 6.56 10^6/uL (3.72-5.28); RED CELL DISTRIBUTION WIDTH 20.3 % (11.5-14.0); WHITE BLOOD COUNT 24.3 10^3/uL (4.0-10.5)
[2017-10-07 10:26] LABS: ANION GAP 14 (5-19); BLOOD UREA NITROGEN 18 mg/dL (7-20); CALCIUM 9.7 mg/dL (8.4-10.2); CARBON DIOXIDE 29 mmol/L (22-30); CHLORIDE 98 mmol/L (98-107); GLUCOSE 265 mg/dL (75-110); PHOSPHORUS 4.7 mg/dL (2.5-4.5); POTASSIUM 4.6 mmol/L (3.6-5.0); SODIUM 140.9 mmol/L (137-145)
[2017-10-07 10:40] LABS: ABSOLUTE LYMPHOCYTES# (MANUAL) 1.9 10^3/uL (0.5-4.7); ABSOLUTE MONOCYTES # (MANUAL) 0.7 10^3/uL (0.1-1.4); ABSOLUTE NEUTROPHILS# (MANUAL) 21.6 10^3/uL (1.7-8.2); BASOPHILS % (MANUAL) 0 % (0-2); EOSINOPHILS % (MANUAL) 0 % (0-6); LYMPHOCYTES % (MANUAL) 8 % (13-45); MONOCYTES % (MANUAL) 3 % (3-13); SEGMENTED NEUTROPHILS % (MAN) 89 % (42-78); TOTAL CELLS COUNTED 100
[2017-10-07 10:45] LABS: ANISOCYTOSIS 2+; HYPOCHROMASIA 2+; PLATELET COMMENT ADEQUATE; POLYCHROMASIA SLIGHT; TOXIC GRANULATION 2+
--- NOTE | 2017-10-07 13:21 | RADIOLOGY REPORT (SQ) ---
EXAM DESCRIPTION: CHEST 2 VIEWS COMPLETED DATE/TIME: 10/07/2017 1:13 pm REASON FOR STUDY: r/o PNA COMPARISON: 10/04/2017 EXAM PARAMETERS: NUMBER OF VIEWS: two views TECHNIQUE: Digital Frontal and Lateral radiographic views of the chest acquired. RADIATION DOSE: NA LIMITATIONS: none FINDINGS: LUNGS AND PLEURA: No new opacities, masses or pneumothorax. No pleural effusion. MEDIASTINUM AND HILAR STRUCTURES: No masses or contour abnormalities. HEART AND VASCULAR STRUCTURES: Heart stable size. No evidence for failure. BONES: No acute findings. HARDWARE: None in the chest. OTHER: No other significant finding. IMPRESSION: NO ACUTE RADIOGRAPHIC FINDING IN THE CHEST. NO SIGNIFICANT CHANGE FROM PRIOR STUDY. TECHNICAL DOCUMENTATION: JOB ID: [id number] [employer]- All Rights Reserved Reading location - IP/workstation name: [email or web address]
--- NOTE | 2017-10-07 17:23 | PDOC PROGRESS REPORT ---
Subjective Progress Note for:: 10/07/17 Subjective:: ERVIN MCCORMACK is a 42 year old female who was admitted10/04/2017 for shortness of breath. She has a PMH of COPD, FABIO, morbid obesity, smoking 1-1.5 packs per day for 'many years' Patient seen this morning on rounds, she is sitting up in bed on supplemental oxygen via nasal cannula. The patient still complains of shortness of breath with any activity, nonproductive cough, and sore throat. She denies chest pain , fever or chills. Upon assessment, wheezing can be auscultated in all lung cordero and rhonci is heard in LLL (new finding). The patient is now able to speak in full sentences without pause. Plan for CXR today to evaluate for pneumonia. Reason For Visit: SHORTNESS OF BREATH. Physical Exam Vital Signs: Temp Pulse Resp BP Pulse Ox 98.3 F 63 20 163/81 H 98 10/07/17 16:28 10/07/17 16:28 10/07/17 16:28 10/07/17 16:28 10/07/17 16:28 Pulse Oximeter Nocturnal Start: 10/06/17 09: 28 Freq: Status: Complete Document 10/07/17 00:26 STI (Rec: 10/07/17 00:26 STI [email or web address]) Nocturnal Pulse Oximetry Equipment Usage Equipment in Use Nocturnal Spo2 Charge Charge Now Oxygen Delivery Method (includes room CPAP air) O2 Sat by Pulse Oximetry (92-100) 97 Continuous SpO2 Machine # N-[id number] Intake & Output 10/06/17 10/07/17 10/08/17 06:59 06:59 06:59 Intake Total 1020 1100 Output Total 300 100 Balance 720 1000 Weight 155.6 kg 155.8 kg General appearance: PRESENT: no acute distress Eye exam: PRESENT: conjunctiva pink, PERRLA Mouth exam: PRESENT: moist Neck exam: PRESENT: full ROM Respiratory exam: PRESENT: symmetrical, unlabored, wheezes Cardiovascular exam: PRESENT: +S1, +S2 Pulses: PRESENT: normal radial pulses, normal dorsalis pedis pul GI/Abdominal exam: PRESENT: normal bowel sounds, soft. ABSENT: tenderness Extremities exam: PRESENT: full ROM Musculoskeletal exam: PRESENT: ambulatory, full ROM Neurological exam: PRESENT: alert, awake, oriented to person, oriented to place , oriented to time, oriented to situation Psychiatric exam: PRESENT: appropriate affect Skin exam: PRESENT: intact, normal color Results Laboratory Results: 10/07/17 09:55 10/07/17 09:45 10/07/17 10/07/17 09:45 09:55 WBC 24.3 H RBC 6.56 H Hgb 12.4 Hct 41.0 MCV 63 L MCH 18.9 L MCHC 30.2 L RDW 20.3 H Plt Count 388 Seg Neutrophils % Not Reportable Lymphocytes % Not Reportable Monocytes % Not Reportable Eosinophils % Not Reportable Basophils % Not Reportable Absolute Neutrophils Not Reportable Absolute Lymphocytes Not Reportable Absolute Monocytes Not Reportable Absolute Eosinophils Not Reportable Absolute Basophils Not Reportable Sodium 140.9 Potassium 4.6 Chloride 98 Carbon Dioxide 29 Anion Gap 14 BUN 18 Creatinine 0.62 Est GFR ( Amer) > 60 Est GFR (Non-Af Amer) > 60 Glucose 265 H Calcium 9.7 Phosphorus 4.7 H Magnesium 2.3 10/05/17 17:27 Throat Throat Culture - Final NORMAL AMANDEEP Impressions: Chest X-Ray 10/07/17 00:00 IMPRESSION: NO ACUTE RADIOGRAPHIC FINDING IN THE CHEST. NO SIGNIFICANT CHANGE FROM PRIOR STUDY. Status: Imported from PACS Assessment & Plan - Diagnosis (1) COPD exacerbation Is this a current diagnosis for this admission?: Yes Plan: Exacerbation likely secondary to acute bronchitis Patient presented with SOB, cough, and wheezing Today, rhonci heard in LLL today, new physical exam finding. CXR completed, no new findings, results benign. Despite lack of radiological findings, plan to upgrade antibiotics from doxycycline to ceftriaxone IV for empiric coverage of PNA, as well as acute bronchitis in the setting of severe COPD As needed supplemental oxygen for SPO2>88% Of note, the patient tested negative for the flu and strep a few weeks ago, repeat rapid strep negative. Throat culture pending. PFT completed yesterday, demonstrates severe obstructive pulmonary disease. Given the patient's persistent wheezing, increased IV solumedrol dose and frequency to 80 mg every 6 hours. Continue scheduled Duonebs Continue Spiriva and serevent Pulmonology consulted, Dr. Borges recommended barium swallow to assess for possible aspiration Extensive counseling about smoking cessation with adult children at bedside. (2) Essential hypertension Is this a current diagnosis for this admission?: Yes Plan: Patient denies a history of hypertension. She is not on any blood pressure medications. She remains slightly HYPERtensive since admission, despite initiating Norvasc Continue Norvasc and initiate lisinopril in hopes of achieving better control of her blood pressure PRN IV hydralazine for SBP > 170 (3) Morbid obesity with BMI of 50.0-59.9, adult Is this a current diagnosis for this admission?: Yes Plan: The patient is morbidly obese with a BMI of 52.5 Will need to exercise discretion with dietary requests. Please patient on low-fat diet (4) Obstructive sleep apnea Is this a current diagnosis for this admission?: Yes Plan: Patient does not have an official diagnosis of obstructive sleep apnea. FABIO sleeping patterns observed by shift supervisor rn nursing staff. Patient oftentimes becomes bradycardic when sleeping. Nighttime continuous pulse oximetry ordered and patient's SPO2 remained normal while on CPAP but she still has episodes of bradycardia. Continue CPAP QHS Continue supplemental oxygen as needed to maintain SPO2>88%. Patient will require sleep studies as an outpatient (5) Smoker Is this a current diagnosis for this admission?: Yes Plan: Patient endorses a 1 to 1.5 pack per day smoking habit for 20 years She is NOT motivated to quit. Patient refused nicotine patch (6) Sore throat Is this a current diagnosis for this admission?: Yes Plan: Reason endorses sore throat. Upon assessment, redness to the back of the throat as well as tonsilar erythema and very mild swelling. As needed throat lozenges and Hurricane spray Throat culture pending Rapid strep negative - Time Time Spent with patient: 15-24 minutes Smoking Cessation Education: over 10 minutes Medications reviewed and adjusted accordingly: Yes Anticipated discharge: Home - Inpatient Certification Based on my medical assessment, after consideration of the patient's comorbidities, presenting symptoms, or acuity I expect that the services needed warrant INPATIENT care.: Yes I certify that my determination is in accordance with my understanding of Medicare's requirements for reasonable and necessary INPATIENT services [42 CFR 412.3e].: Yes Medical Necessity: Risk of Complication if Not Cared For in Hospital - Plan Summary Plan Summary: The plan is to discharge the patient home. Unclear at this time if she will require home O2.
[2017-10-07] MEDS: LISINOPRIL 10 MG TABLET PO SCH (18:02)
[2017-10-07] MEDS: TIOTROPIUM BROMIDE DPI 5 CAP/KIT (18 MCG/CAP) IH SCH (18:03)
[2017-10-07] MEDS ORDERED: CEFTRIAXONE 2 GM/D5W RTU 2 GM/50 ML RTUPB IV ONE (19:56)
[2017-10-07] MEDS: CEFTRIAXONE 2 GM/D5W RTU 2 GM/50 ML RTUPB IV SCH (20:15)
[2017-10-07] MEDS: AMLODIPINE BESYLATE 5 MG TABLET PO SCH (21:17)
[2017-10-08] MEDS: METHYLPREDNISOLONE INJ 125 MG/2 ML SDV IV SCH ×4 (02:07→21:33)
[2017-10-08] MEDS: IPRATROPIUM/ALBUTEROL 0.5-2.5 MG/3 ML AMPUL NEB SCH ×5 (04:10→20:21)
[2017-10-08] MEDS: SALMETEROL XINAFOATE DISKUS 50 MCG/1 DOSE 28 DOSE IH SCH ×2 (05:21→17:06)
[2017-10-08 07:26] LABS: HEMATOCRIT 38.9 % (36.0-47.0); HEMOGLOBIN 11.7 g/dL (12.0-15.5); MEAN CORPUSCULAR HEMOGLOBIN 18.9 pg (27.0-33.4); MEAN CORPUSCULAR VOLUME 63 fl (80-97); PLATELET COUNT 331 10^3/uL (150-450); RED BLOOD COUNT 6.17 10^6/uL (3.72-5.28); RED CELL DISTRIBUTION WIDTH 20.3 % (11.5-14.0); WHITE BLOOD COUNT 22.4 10^3/uL (4.0-10.5)
[2017-10-08] MEDS: BUDESONIDE NEB 0.5 MG/2 ML AMPUL NEB SCH ×2 (07:46→20:21)
[2017-10-08 07:49] LABS: ANION GAP 11 (5-19); BLOOD UREA NITROGEN 21 mg/dL (7-20); CARBON DIOXIDE 28 mmol/L (22-30); CHLORIDE 100 mmol/L (98-107); GLUCOSE 286 mg/dL (75-110); PHOSPHORUS 4.1 mg/dL (2.5-4.5); POTASSIUM 4.9 mmol/L (3.6-5.0); SODIUM 138.8 mmol/L (137-145)
[2017-10-08] MEDS: NYSTATIN 500000 UNIT/5 ML UDCUP PO SCH ×4 (10:08→21:33)
[2017-10-08] MEDS: GUAIFENESIN 600 MG TABLET.SA PO SCH ×2 (10:08→21:33)
--- NOTE | 2017-10-08 16:38 | PDOC CONSULTATION ---
Consultation Consult Date: 10/05/17 Attending physician:: BARNEY GUEVARA Consult reason:: dyspnea History of Present Illness Admission Date/PCP: 10/04/17 22:29 History of Present Illness: ERVIN MCCORMACK is a 42 year old female She has a history of COPDWith 3 week history of increasing shortness of breath dyspnea on exertion cough productive of greenish phlegm. Admits to dyspnea and exertional activities of daily living. She denies hemoptysis her PPD status is unknown she denies a history of chronic lung disease as a child or adolescent. She admits to exposure large amounts of passive smoke as a child as well as an adult. She herself is smoked a pack a day for 30 years and continues to smoke at this time. She has no pets no recent travel he admits to occasional tightness in her chest is relieved with rest she sleeps on 2-3 pillows occasional PND occasional nocturnal cough chronic edema. She was worse at the time of the hospitalization she admits to snoring restless sleep nocturia 2-3 times per night unrestful sleep and excessive daytime somnolence. 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 Number of Years Smokin Last Time Smoked: 09/26/17 Frequency of Alcohol Use: Occasional - Wine coolers. Hx Recreational Drug Use: No Hx Prescription Drug Abuse: No Do you have pets?: No Have you had any respiratory illnesses as a child?: No Have you been exposed to any sick contacts recently?: No Have you had any recent respiratory illnesses?: Yes Have you travelled outside of [place] in the past 12 months?: No - Advance Directive Resuscitation Status: Full Code Family History Parental Family History Reviewed: No Children Family History Reviewed: No Sibling(s) Family History Reviewed.: No Medication/Allergy Home Medications: Benzonatate [Tessalon Perles 100 mg Capsule] 100 mg PO Q8HP PRN MDD FILLED 10/05/17 Doxycycline Hyclate [Vibramycin 100 mg Tablet] 100 mg PO BID MDD FILLED 10/02/17 10/05/17 Guaifenesin [Mucinex] 1,200 mg PO Q12HP PRN 10/05/17 Hydrocodone Bit/Homatropine [Hycodan Syrup 5-1.5 mg/5 ml Ud Cup] 5 ml PO Q6HP PRN MDD FILLED 10/02/17 10/05/17 Phenol [Chloraseptic] 2 spray MM PRN PRN 10/05/17 Prednisone [Deltasone 20 mg Tablet] 40 mg PO DAILY MDD FILLED 10/02/17 10/05/17 Allergies/Adverse Reactions: ofloxacin [From Floxin] Allergy (Intermediate, Verified 04/04/17 18:20) Hives Review of Systems Constitutional: PRESENT: fatigue, fever(s). ABSENT: anorexia, chills, headache( s), night sweats Eyes: ABSENT: visual disturbances Ears: ABSENT: hearing changes Nose, Mouth, and Throat: ABSENT: mouth pain Cardiovascular: PRESENT: edema, orthropnea. ABSENT: palpitations Respiratory: PRESENT: cough, dyspnea, sputum. ABSENT: hemoptysis Gastrointestinal: PRESENT: abdominal pain, bloating, coffee ground emesis, dysphagia, heartburn. ABSENT: hematemesis, hematochezia, melena Genitourinary: PRESENT: dysuria, hematuria Musculoskeletal: ABSENT: deformity, joint swelling Integumentary: ABSENT: pruritus, rash Neurological: ABSENT: abnormal gait, abnormal movements, abnormal speech, focal weakness, frequent falls, lack of coordination, memory loss Psychiatric: ABSENT: hallucinations, homidical ideation, suicidal ideation Endocrine: PRESENT: polydipsia, polyuria. ABSENT: cold intolerance, heat intolerance, menstrual abnormalities Hematologic/Lymphatic: PRESENT: easy bruising Physical Exam Vital Signs: Temp Pulse Resp BP Pulse Ox 98.2 F 65 22 H 146/63 H 97 10/05/17 20:21 10/05/17 20:21 10/05/17 20:21 10/05/17 20:21 10/05/17 20:21 Intake & Output 10/04/17 10/05/17 10/06/17 06:59 06:59 06:59 Intake Total 360 660 Output Total 0 Balance 360 660 Weight 156.7 kg General appearance: PRESENT: no acute distress, cooperative, disheveled, morbidly obese Head exam: PRESENT: atraumatic, normocephalic Eye exam: PRESENT: conjunctiva pale, EOMI. ABSENT: nystagmus, periorbital swelling, scleral icterus Mouth exam: PRESENT: moist, neck supple, tongue midline Neck exam: ABSENT: carotid bruit, JVD, lymphadenopathy, thyromegaly, tracheal deviation, tracheostomy Respiratory exam: PRESENT: decreased breath sounds, prolonged expiratory phas, rales, rhonchi, symmetrical, unlabored, wheezes. ABSENT: retraction, stridor, tachypnea Cardiovascular exam: PRESENT: RRR, +S1, +S2, systolic murmur Pulses: PRESENT: normal radial pulses GI/Abdominal exam: PRESENT: diminished bowel sounds, soft Extremities exam: PRESENT: +2 edema. ABSENT: clubbing Musculoskeletal exam: ABSENT: deformity, dislocation Neurological exam: PRESENT: alert, awake Skin exam: PRESENT: dry, warm Results Laboratory Results: 10/05/17 04:35 10/05/17 04:35 10/05/17 10/05/17 04:35 04:35 WBC 16.5 H RBC 6.00 H Hgb 11.5 L Hct 37.6 MCV 63 L MCH 19.1 L MCHC 30.5 L RDW 21.0 H Plt Count 302 Sodium 142.3 Potassium 4.8 Chloride 102 Carbon Dioxide 27 Anion Gap 13 BUN 14 Creatinine 0.54 Est GFR ( Amer) > 60 Est GFR (Non-Af Amer) > 60 Glucose 221 H Calcium 8.8 Impressions: Chest X-Ray 10/04/17 17:21 IMPRESSION: NO ACUTE RADIOGRAPHIC FINDING IN THE CHEST. Assessment & Plan - Diagnosis (1) Congestive heart failure Is this a current diagnosis for this admission?: Yes Plan: Suggest an echocardiogram Or a MUGA (2) COPD exacerbation Is this a current diagnosis for this admission?: Yes Plan: Suggest,discontinuing prn albuterol is duplicated by Xopenex suggest Serevent Spirival on hold at this time;These results in some duplication of the LABA, LAMA and ROSA Generic Name Dose Route Start Last Admin Trade Name Freq PRN Reason Stop Dose Admin Budesonide 0.5 mg 10/06/17 08:00 10/08/17 07:46 Pulmicort Neb 0.5 Mg/2 Ml Ampul NEB 11/05/17 07:59 0.5 mg RTQ12 DENTON Methylprednisolone Sodium Succinate 80 mg 10/07/17 11:44 10/08/17 14:49 Solu-Medrol Inj/Pf 125 Mg/2 Ml Sdv IV 11/06/17 11:43 80 mg Q6A DENTON Lisinopril 10 mg 10/07/17 18:00 10/07/17 18:02 Prinivil 10 Mg Tablet PO 11/06/17 17:59 10 mg QPM DENTON Albuterol 2.5 mg 10/04/17 22:35 10/05/17 09:27 Ventolin 0.083% Neb 2.5 Mg/3 Ml Ampul NEB 11/03/17 22:34 2.5 mg RTQ4HP PRN SHORTNESS OF BREATH Albuterol/Ipratropium 3 ml 10/05/17 16:00 10/08/17 16:12 Duoneb 3 Ml Ampul NEB 11/04/17 15:59 3 ml RTQ4 DENTON Levalbuterol HCl 0.63 mg 10/05/17 12:49 Xopenex Neb 0.63 Mg/3 Ml Ampul NEB 11/04/17 12:48 RTQ4HP PRN SHORTNESS OF BREATH Salmeterol Xinafoate 50 mcg 10/05/17 18:00 10/08/17 05:21 Serevent Diskus 50 Mcg/Dose 28 Dose/Diskus IH 11/04/17 17:59 50 mcg Q12A DENTON Guaifenesin 600 mg 10/05/17 22:00 10/08/17 10:08 Mucinex Sr 600 Mg Tablet.Sa PO 11/04/17 21:59 600 mg Q12 DENTON Generic Name Dose Route Start Last Admin Trade Name Freq PRN Reason Stop Dose Admin Tiotropium Vancleave 1 cap 10/05/17 18:00 10/07/17 18:03 Spiriva Handihaler 5 Cap/Kit (18 Mcg/Cap) IH 11/04/17 17:59 1 cap QPM DENTON (3) Essential hypertension Is this a current diagnosis for this admission?: Yes (4) Morbid obesity with BMI of 50.0-59.9, adult Is this a current diagnosis for this admission?: Yes (5) Obstructive sleep apnea Is this a current diagnosis for this admission?: Yes Plan: Agree with empiric therapy for CPAP nocturnal hypoxemia complete nocturnal polysomnogram to be scheduled at time of discharge (6) Smoker Is this a current diagnosis for this admission?: Yes Plan: Stop smoking discussed at length the risk and dangers associated with continued tobacco use
--- NOTE | 2017-10-08 16:46 | Pulmonary Function Test ---
Pulmonary Function Test Date of Procedure:: 10/05/17 INDICATION:: Dyspnea Referring Provider: Sherri Stark MD Maintenance Construction Helper: Adrianna Crawley SPECIAL EVENTS ASSISTANT - Report Spirometry: FVC 2.28 L61% postbronchodilator 2.38 L 63% FEV1 1.37 L 44% postbronchodilator 1.43 L 46% FEV1/FVC % 60 postbronchodilator 60 predicted 81 FEF 25-75% 1.42 L 41% postbronchodilator 1.11 L 32% Impression: Study demonstrates severe obstructive ventilatory defect with insignificant response to bronchodilator therapy. This does not preclude clinical trial of bronchodilator therapy. Restrictive defect is suggested but cannot be diagnosed on the basis of spirometry alone. Restrictive defects may mask the degree of obstruction. If clinically warranted complete pulmonary function tests would be advisable;when patient is stable
[2017-10-08] MEDS: CEFTRIAXONE 2 GM/D5W RTU 2 GM/50 ML RTUPB IV SCH (17:04)
[2017-10-08] MEDS: TIOTROPIUM BROMIDE DPI 5 CAP/KIT (18 MCG/CAP) IH SCH (17:06)
[2017-10-08] MEDS: LISINOPRIL 10 MG TABLET PO SCH (17:06)
--- NOTE | 2017-10-08 18:04 | PDOC PROGRESS REPORT ---
Subjective Progress Note for:: 10/08/17 Subjective:: ERVIN MCCORMACK is a 42 year old female who was admitted10/04/2017 for shortness of breath. She has a PMH of COPD, FABIO, morbid obesity, smoking 1-1.5 packs per day for 'many years' Patient seen this morning on rounds, she is sitting up in bed on room air. The patient states she feels markedly better today. Her lungs are clear in all lung cordero. The patient is able to speak in full sentences without pause. Plan to monitor for 24 hours, should the patient continue to progress, likely discharge home tomorrow. Reason For Visit: SHORTNESS OF BREATH. Physical Exam Vital Signs: Temp Pulse Resp BP Pulse Ox 97.8 F 64 14 134/64 H 95 10/08/17 11:28 10/08/17 16:15 10/08/17 16:15 10/08/17 11:28 10/08/17 16:15 Pulse Oximeter Nocturnal Start: 10/06/17 09: 28 Freq: Status: Complete Document 10/07/17 00:26 STI (Rec: 10/07/17 00:26 STI [id number]) Nocturnal Pulse Oximetry Equipment Usage Equipment in Use Nocturnal Spo2 Charge Charge Now Oxygen Delivery Method (includes room CPAP air) O2 Sat by Pulse Oximetry (92-100) 97 Continuous SpO2 Machine # N-[id number] Intake & Output 10/07/17 10/08/17 10/09/17 06:59 06:59 06:59 Intake Total 1100 1738 Output Total 100 1750 Balance 1000 -12 Weight 155.8 kg 155.4 kg General appearance: PRESENT: no acute distress Eye exam: PRESENT: conjunctiva pink, PERRLA Mouth exam: PRESENT: moist Neck exam: PRESENT: full ROM Respiratory exam: PRESENT: clear to auscultation jose, symmetrical, unlabored Cardiovascular exam: PRESENT: +S1, +S2 Pulses: PRESENT: normal radial pulses, normal dorsalis pedis pul GI/Abdominal exam: PRESENT: normal bowel sounds, soft. ABSENT: tenderness Rectal exam: PRESENT: deferred Extremities exam: PRESENT: full ROM Musculoskeletal exam: PRESENT: full ROM Neurological exam: PRESENT: alert, awake, oriented to person, oriented to place , oriented to time, oriented to situation, reflexes normal Psychiatric exam: PRESENT: appropriate affect Skin exam: PRESENT: intact, normal color Results Laboratory Results: 10/08/17 06:46 10/08/17 06:46 10/08/17 10/08/17 06:46 06:46 WBC 22.4 H RBC 6.17 H Hgb 11.7 L Hct 38.9 MCV 63 L MCH 18.9 L MCHC 30.0 L RDW 20.3 H Plt Count 331 Sodium 138.8 Potassium 4.9 Chloride 100 Carbon Dioxide 28 Anion Gap 11 BUN 21 H Creatinine 0.55 Est GFR ( Amer) > 60 Est GFR (Non-Af Amer) > 60 Glucose 286 H Calcium 9.0 Phosphorus 4.1 Magnesium 2.3 Impressions: Chest X-Ray 10/07/17 00:00 IMPRESSION: NO ACUTE RADIOGRAPHIC FINDING IN THE CHEST. NO SIGNIFICANT CHANGE FROM PRIOR STUDY. Assessment & Plan - Diagnosis (1) COPD exacerbation Is this a current diagnosis for this admission?: Yes Plan: Exacerbation likely secondary to acute bronchitis Patient presented with SOB, cough, and wheezing Today, lungs clear to auscultation. CXR results benign. Continue ceftriaxone IV for empiric coverage of PNA, as well as acute bronchitis in the setting of severe COPD As needed supplemental oxygen for SPO2>88% Of note, the patient tested negative for the flu and strep a few weeks ago, repeat rapid strep negative. Throat culture pending. PFT completed yesterday, demonstrates severe obstructive pulmonary disease. Continue scheduled Duonebs Continue scheduled steroids Continue Spiriva and serevent Pulmonology consulted, Dr. Borges recommended barium swallow to assess for possible aspiration (2) Essential hypertension Is this a current diagnosis for this admission?: Yes Plan: Patient denies a history of hypertension. She is not on any blood pressure medications. She remains NORMOtensive over the last 24 hours Continue Norvasc and lisinopril PRN IV hydralazine for SBP > 170 (3) Morbid obesity with BMI of 50.0-59.9, adult Is this a current diagnosis for this admission?: Yes Plan: The patient is morbidly obese with a BMI of 52.5 Will need to exercise discretion with dietary requests. Please patient on low-fat diet (4) Obstructive sleep apnea Is this a current diagnosis for this admission?: Yes Plan: Patient does not have an official diagnosis of obstructive sleep apnea. FABIO sleeping patterns observed by slot shift supervisor nursing staff. Patient oftentimes becomes bradycardic when sleeping. Nighttime continuous pulse oximetry ordered and patient's SPO2 remained normal while on CPAP but she still has episodes of bradycardia. Continue CPAP QHS Continue supplemental oxygen as needed to maintain SPO2>88%. Patient will require sleep studies as an outpatient. Discussed the need for at home CPAP with discharge planning. Appreciate their assistance in obtaining machine, which may prove to be difficult because the patient does not have health insurance. (5) Smoker Is this a current diagnosis for this admission?: Yes Plan: Patient endorses a 1 to 1.5 pack per day smoking habit for 20 years She is NOT motivated to quit. Patient refused nicotine patch (6) Sore throat Is this a current diagnosis for this admission?: Yes Plan: Reason endorses sore throat. Upon assessment, redness to the back of the throat as well as tonsilar erythema and very mild swelling. As needed throat lozenges and Hurricane spray Throat culture pending Rapid strep negative - Time Time Spent with patient: 15-24 minutes Smoking Cessation Education: 3 to 10 minutes Medications reviewed and adjusted accordingly: Yes Anticipated discharge: Home Within: within 24 hours - Inpatient Certification Based on my medical assessment, after consideration of the patient's comorbidities, presenting symptoms, or acuity I expect that the services needed warrant INPATIENT care.: Yes I certify that my determination is in accordance with my understanding of Medicare's requirements for reasonable and necessary INPATIENT services [42 CFR 412.3e].: Yes Medical Necessity: Risk of Complication if Not Cared For in Hospital - Plan Summary Plan Summary: At this time, the plan is to perform paracentesis tomorrow.
[2017-10-08] MEDS: AMLODIPINE BESYLATE 5 MG TABLET PO SCH (21:33)
[2017-10-09] MEDS: IPRATROPIUM/ALBUTEROL 0.5-2.5 MG/3 ML AMPUL NEB SCH ×5 (00:02→15:37)
[2017-10-09] MEDS: METHYLPREDNISOLONE INJ 125 MG/2 ML SDV IV SCH ×3 (03:01→16:57)
[2017-10-09] MEDS: SALMETEROL XINAFOATE DISKUS 50 MCG/1 DOSE 28 DOSE IH SCH (05:49)
[2017-10-09] MEDS: BUDESONIDE NEB 0.5 MG/2 ML AMPUL NEB SCH (07:44)
[2017-10-09] MEDS: GUAIFENESIN 600 MG TABLET.SA PO SCH (09:13)
[2017-10-09] MEDS: NYSTATIN 500000 UNIT/5 ML UDCUP PO SCH ×2 (09:13→15:59)
--- NOTE | 2017-10-09 12:55 | RADIOLOGY REPORT (SQ) ---
EXAM DESCRIPTION: BARIUM SWALLOW ESOPHAGUS COMPLETED DATE/TIME: 10/09/2017 8:59 am REASON FOR STUDY: r/o aspiration COMPARISON: None. TECHNIQUE: Under fluoroscopic guidance, patient ingested effervescent granules followed by thick and thin barium. Fluoroscopic spot images and routine radiographic images acquired and stored on PACS. 12 MM BARIUM TABLET GIVEN: The patient swallowed a 12 mm barium tablet which passed easily through th e esophagus and into the stomach without delay. LIMITATIONS: None. FLUOROSCOPY TIME: FLUORO TIME: 2.16 minutes 6 images saved to PACS. FINDINGS: NEUROMUSCULAR COORDINATION OF SWALLOW: Normal. No aspiration. ESOPHAGEAL MOTILITY: Normal peristalsis. No esophageal spasm. ESOPHAGEAL MUCOSA: Normal mucosa without masses or ulceration. GASTRO-ESOPHAGEAL JUNCTION: There is a small hiatal hernia present. No gastroesophageal reflux was d emonstrated. NON-GI TRACT STRUCTURES: No significant finding. OTHER: No evidence for aspiration. IMPRESSION: SMALL HIATAL HERNIA PRESENT. OTHERWISE UNREMARKABLE STUDY. . RECOMMENDATION: None COMMENT: None Quality ID [id number]: Final reports for procedures using fluoroscopy that document radiation exposure ezequiel liudmila, or exposure time and number of fluorographic images (if radiation exposure indices are not avail able) TECHNICAL DOCUMENTATION: JOB ID: [id number] [employer]- All Rights Reserved Reading location - IP/workstation name: [email or web address]
[2017-10-09] MEDS ORDERED: PROMETHAZINE HCL INJ 25 MG/1 ML VIAL IV PRN (14:00)
[2017-10-09 17:37] VITALS: BP 151/61
--- NOTE | 2017-10-10 20:06 | PDOC PROGRESS REPORT ---
Subjective Progress Note for:: 10/06/17 Subjective:: Patient without complaint Reason For Visit: SHORTNESS OF BREATH. Physical Exam Vital Signs: Temp Pulse Resp BP Pulse Ox 97.7 F 51 L 12 158/81 H 95 10/07/17 08:40 10/07/17 08:40 10/07/17 08:40 10/07/17 08:40 10/07/17 08:40 Pulse Oximeter Nocturnal Start: 10/06/17 09: 28 Freq: Status: Complete Document 10/07/17 00:26 STI (Rec: 10/07/17 00:26 STI [email or web address]) Nocturnal Pulse Oximetry Equipment Usage Equipment in Use Nocturnal Spo2 Charge Charge Now Oxygen Delivery Method (includes room CPAP air) O2 Sat by Pulse Oximetry (92-100) 97 Continuous SpO2 Machine # [id number] Intake & Output 10/06/17 10/07/17 10/08/17 06:59 06:59 06:59 Intake Total 1020 1100 Output Total 300 100 Balance 720 1000 Weight 155.6 kg 155.8 kg General appearance: PRESENT: no acute distress, cooperative, disheveled, morbidly obese Head exam: PRESENT: atraumatic, normocephalic Eye exam: PRESENT: conjunctiva pale, EOMI Mouth exam: PRESENT: dry mucosa, neck supple, tongue midline Neck exam: ABSENT: carotid bruit, JVD, lymphadenopathy, thyromegaly, tracheal deviation, tracheostomy Respiratory exam: PRESENT: decreased breath sounds, prolonged expiratory phas, rales, rhonchi, unlabored. ABSENT: retraction, stridor, tachypnea Cardiovascular exam: PRESENT: RRR, +S1, +S2 Pulses: PRESENT: normal radial pulses GI/Abdominal exam: PRESENT: diminished bowel sounds, soft Extremities exam: ABSENT: calf tenderness, clubbing, joint swelling Musculoskeletal exam: ABSENT: deformity, dislocation Neurological exam: PRESENT: awake Skin exam: PRESENT: dry, warm Results Laboratory Results: 10/07/17 09:55 10/07/17 09:45 10/07/17 10/07/17 09:45 09:55 WBC 24.3 H RBC 6.56 H Hgb 12.4 Hct 41.0 MCV 63 L MCH 18.9 L MCHC 30.2 L RDW 20.3 H Plt Count 388 Seg Neutrophils % Not Reportable Lymphocytes % Not Reportable Monocytes % Not Reportable Eosinophils % Not Reportable Basophils % Not Reportable Absolute Neutrophils Not Reportable Absolute Lymphocytes Not Reportable Absolute Monocytes Not Reportable Absolute Eosinophils Not Reportable Absolute Basophils Not Reportable Sodium 140.9 Potassium 4.6 Chloride 98 Carbon Dioxide 29 Anion Gap 14 BUN 18 Creatinine 0.62 Est GFR ( Amer) > 60 Est GFR (Non-Af Amer) > 60 Glucose 265 H Calcium 9.7 Phosphorus 4.7 H Magnesium 2.3 10/05/17 17:27 Throat Throat Culture - Final NORMAL AMANDEEP Impressions: Chest X-Ray 10/04/17 17:21 IMPRESSION: NO ACUTE RADIOGRAPHIC FINDING IN THE CHEST. Assessment & Plan - Diagnosis (1) COPD exacerbation Is this a current diagnosis for this admission?: Yes Plan: Suggest,discontinuing prn albuterol is duplicated by Xopenex suggest Serevent Spirival on hold at this time;These results in some duplication of the LABA, LAMA and ROSA Generic Name Dose Route Start Last Admin Trade Name Freq PRN Reason Stop Dose Admin Budesonide 0.5 mg 10/06/17 08:00 10/08/17 07:46 Pulmicort Neb 0.5 Mg/2 Ml Ampul NEB 11/05/17 07:59 0.5 mg RTQ12 DENTON Methylprednisolone Sodium Succinate 80 mg 10/07/17 11:44 10/08/17 14:49 Solu-Medrol Inj/Pf 125 Mg/2 Ml Sdv IV 11/06/17 11:43 80 mg Q6A DENTON Lisinopril 10 mg 10/07/17 18:00 10/07/17 18:02 Prinivil 10 Mg Tablet PO 11/06/17 17:59 10 mg QPM DENTON Albuterol 2.5 mg 10/04/17 22:35 10/05/17 09:27 Ventolin 0.083% Neb 2.5 Mg/3 Ml Ampul NEB 11/03/17 22:34 2.5 mg RTQ4HP PRN SHORTNESS OF BREATH Albuterol/Ipratropium 3 ml 10/05/17 16:00 10/08/17 16:12 Duoneb 3 Ml Ampul NEB 11/04/17 15:59 3 ml RTQ4 DENTON Levalbuterol HCl 0.63 mg 10/05/17 12:49 Xopenex Neb 0.63 Mg/3 Ml Ampul NEB 11/04/17 12:48 RTQ4HP PRN SHORTNESS OF BREATH Salmeterol Xinafoate 50 mcg 10/05/17 18:00 10/08/17 05:21 Serevent Diskus 50 Mcg/Dose 28 Dose/Diskus IH 11/04/17 17:59 50 mcg Q12A DENTON Guaifenesin 600 mg 10/05/17 22:00 10/08/17 10:08 Mucinex Sr 600 Mg Tablet.Sa PO 11/04/17 21:59 600 mg Q12 DENTON Generic Name Dose Route Start Last Admin Trade Name Freq PRN Reason Stop Dose Admin Tiotropium Ripton 1 cap 10/05/17 18:00 10/07/17 18:03 Spiriva Handihaler 5 Cap/Kit (18 Mcg/Cap) 11/04/17 17:59 1 cap QPM DENTON (2) Morbid obesity with BMI of 50.0-59.9, adult Is this a current diagnosis for this admission?: Yes (3) Obstructive sleep apnea Is this a current diagnosis for this admission?: Yes Plan: Agree with empiric therapy for CPAP nocturnal hypoxemia complete nocturnal polysomnogram to be scheduled at time of discharge (4) Smoker Is this a current diagnosis for this admission?: Yes Plan: Stop smoking discussed at length the risk and dangers associated with continued tobacco use
--- NOTE | 2017-10-10 20:07 | PDOC PROGRESS REPORT ---
Subjective Progress Note for:: 10/09/17 Subjective:: Patient without complaint Reason For Visit: SHORTNESS OF BREATH. Physical Exam Vital Signs: Temp Pulse Resp BP Pulse Ox 97.4 F 50 L 19 161/78 H 100 10/09/17 07:51 10/09/17 07:59 10/09/17 07:51 10/09/17 07:51 10/09/17 07:51 Pulse Oximeter Nocturnal Start: 10/06/17 09: 28 Freq: Status: Complete Document 10/07/17 00:26 STI (Rec: 10/07/17 00:26 STI [email or web address]) Nocturnal Pulse Oximetry Equipment Usage Equipment in Use Nocturnal Spo2 Charge Charge Now Oxygen Delivery Method (includes room CPAP air) O2 Sat by Pulse Oximetry (92-100) 97 Continuous SpO2 Machine # N-2 Intake & Output 10/08/17 10/09/17 10/10/17 06:59 06:59 06:59 Intake Total 1738 1389 Output Total 1750 Balance -12 1389 Weight 155.4 kg 155.7 kg General appearance: PRESENT: no acute distress, cooperative, disheveled, morbidly obese Head exam: PRESENT: atraumatic, normocephalic Eye exam: PRESENT: conjunctiva pale, EOMI. ABSENT: nystagmus, periorbital swelling, scleral icterus Mouth exam: PRESENT: dry mucosa, neck supple, tongue midline Neck exam: ABSENT: carotid bruit, JVD, lymphadenopathy, thyromegaly, tracheal deviation, tracheostomy Respiratory exam: PRESENT: decreased breath sounds, prolonged expiratory phas, rales, rhonchi, unlabored. ABSENT: retraction, stridor, tachypnea Cardiovascular exam: PRESENT: RRR, +S1, +S2 Pulses: PRESENT: normal radial pulses GI/Abdominal exam: PRESENT: diminished bowel sounds, soft Extremities exam: ABSENT: calf tenderness, clubbing, joint swelling Musculoskeletal exam: ABSENT: deformity, dislocation Neurological exam: PRESENT: awake Skin exam: PRESENT: dry Results Laboratory Results: 10/08/17 06:46 10/08/17 06:46 Impressions: Chest X-Ray 10/07/17 00:00 IMPRESSION: NO ACUTE RADIOGRAPHIC FINDING IN THE CHEST. NO SIGNIFICANT CHANGE FROM PRIOR STUDY. Assessment & Plan - Diagnosis (1) Congestive heart failure Is this a current diagnosis for this admission?: Yes Plan: Suggest an echocardiogram Or a MUGA (2) COPD exacerbation Is this a current diagnosis for this admission?: Yes Plan: Suggest,discontinuing prn albuterol is duplicated by Xopenex suggest Serevent Spirival on hold at this time;These results in some duplication of the LABA, LAMA and ROSA Generic Name Dose Route Start Last Admin Trade Name Freq PRN Reason Stop Dose Admin Budesonide 0.5 mg 10/06/17 08:00 10/08/17 07:46 Pulmicort Neb 0.5 Mg/2 Ml Ampul NEB 11/05/17 07:59 0.5 mg RTQ12 DENTON Methylprednisolone Sodium Succinate 80 mg 10/07/17 11:44 10/08/17 14:49 Solu-Medrol Inj/Pf 125 Mg/2 Ml Sdv IV 11/06/17 11:43 80 mg Q6A DENTON Lisinopril 10 mg 10/07/17 18:00 10/07/17 18:02 Prinivil 10 Mg Tablet PO 11/06/17 17:59 10 mg QPM DENTON Albuterol 2.5 mg 10/04/17 22:35 10/05/17 09:27 Ventolin 0.083% Neb 2.5 Mg/3 Ml Ampul NEB 11/03/17 22:34 2.5 mg RTQ4HP PRN SHORTNESS OF BREATH Albuterol/Ipratropium 3 ml 10/05/17 16:00 10/08/17 16:12 Duoneb 3 Ml Ampul NEB 11/04/17 15:59 3 ml RTQ4 DENTON Levalbuterol HCl 0.63 mg 10/05/17 12:49 Xopenex Neb 0.63 Mg/3 Ml Ampul NEB 11/04/17 12:48 RTQ4HP PRN SHORTNESS OF BREATH Salmeterol Xinafoate 50 mcg 10/05/17 18:00 10/08/17 05:21 Serevent Diskus 50 Mcg/Dose 28 Dose/Diskus IH 11/04/17 17:59 50 mcg Q12A DENTON Guaifenesin 600 mg 10/05/17 22:00 10/08/17 10:08 Mucinex Sr 600 Mg Tablet.Sa PO 11/04/17 21:59 600 mg Q12 DENTON Generic Name Dose Route Start Last Admin Trade Name Freq PRN Reason Stop Dose Admin Tiotropium Julian 1 cap 10/05/17 18:00 10/07/17 18:03 Spiriva Handihaler 5 Cap/Kit (18 Mcg/Cap) IH 11/04/17 17:59 1 cap QPM DENTON (3) Essential hypertension Is this a current diagnosis for this admission?: Yes (4) Morbid obesity with BMI of 50.0-59.9, adult Is this a current diagnosis for this admission?: Yes (5) Obstructive sleep apnea Is this a current diagnosis for this admission?: Yes Plan: Agree with empiric therapy for CPAP nocturnal hypoxemia complete nocturnal polysomnogram to be scheduled at time of discharge (6) Smoker Is this a current diagnosis for this admission?: Yes Plan: Stop smoking discussed at length the risk and dangers associated with continued tobacco use
== END 2017-10-09 18:15 | disposition home or self-care (01) | DRG 292 ==
LOC: ER 15:45 → EH 22:29 → 5 10-05
PROVIDERS: ADMIT Internal Medicine Geriatric Medicine; ATTEND Internal Medicine Geriatric Medicine
DX: I11.0 Hypertensive heart disease with heart failure (principal); J44.1 Chronic obstructive pulmonary disease with (acute) exacerbation; Z68.43 Body mass index [BMI] 50.0-59.9, adult; I50.9 Heart failure, unspecified; E11.9 Type 2 diabetes mellitus without complications; J02.9 Acute pharyngitis, unspecified; G47.33 Obstructive sleep apnea (adult) (pediatric); E66.01 Morbid (severe) obesity due to excess calories; F17.210 Nicotine dependence, cigarettes, uncomplicated
CPT/HCPCS: 36415; 36600; 71046; 74220; 80048; 82803; 83735; 83880; 84100; 85025; 85027; 87070; 87880; 94060; 94660; 94667; 94761; 94762; 94799; 99285; J0696; J2920; J2930; J3475; J3490; J7620

== ENCOUNTER → 2017-11-20 | Outpatient (CLI) | payer MEDICAID ==
--- NOTE | 2017-11-20 10:26 | RADIOLOGY REPORT (SQ) ---
EXAM DESCRIPTION: CT CHEST WITHOUT COMPLETED DATE/TIME: 11/20/2017 8:41 am REASON FOR STUDY: CHRONIC COUGH R05 COUGH COMPARISON: None. TECHNIQUE: CT scan performed of the chest without intravenous contrast. Images reviewed with lung, soft tissue and bone windows. Reconstructed coronal and sagittal MPR images reviewed. All images st ored on PACS. All CT scanners at this facility use dose modulation, iterative reconstruction, and/or weight based d osing when appropriate to reduce radiation dose to as low as reasonably achievable (ALARA). [facility]: Dose Right [facility]: CareDose [facility]: Dose Right [facility]: Teradose 4D [facility]: [employer] RADIATION DOSE: CT Rad equipment meets quality standard of care and radiation dose reduction techniq ues were employed. CTDIvol: 19.4 mGy. DLP: 727 mGy-cm. mGy. LIMITATIONS: No technical limitations. FINDINGS: LUNGS AND PLEURA: No masses, infiltrates, pneumothorax. No pleural effusions, calcificati ons. HILAR AND MEDIASTINAL STRUCTURES: No identified masses or abnormal nodes. No obvious aneurysm. HEART AND VASCULAR STRUCTURES: No aneurysm. No pericardial effusion. UPPER ABDOMEN: There is a 4 cm fat density left adrenal mass. THYROID AND OTHER SOFT TISSUES: No masses. No adenopathy. BONES: No significant finding. HARDWARE: None in the chest. OTHER: No other significant findings. IMPRESSION: 1. No acute cardiopulmonary disease is present. 2. 4 cm left adrenal mass. Likely adenoma. TECHNICAL DOCUMENTATION: JOB ID: [id number] Quality ID # [id number]: Final reports with documentation of one or more dose reduction techniques (e.g., Au tomated exposure control, adjustment of the mA and/or kV according to patient size, use of iterative reconstruction technique) 2010 [employer]- All Rights Reserved Reading location - IP/workstation name: [email or web address]
== END ==
LOC: RAD 08:25
PROVIDERS: ATTEND Physician Assistant
DX: R05 Cough (principal); E27.9 Disorder of adrenal gland, unspecified
CPT/HCPCS: 71250

== ENCOUNTER 2018-06-05 11:36 | Emergency (ER) | payer SELFPAY ==
--- NOTE | 2018-06-05 12:19 | ER Document Report ---
ED Medical Screen (RME) - General Chief Complaint: Flank Pain Stated Complaint: RIGHT FLANK PAIN Time Seen by Provider: 06/05/18 12:04 Mode of Arrival: Ambulatory Information source: Patient Notes: 41-year-old female with COPD, hypertension, sleep apnea, diabetes, MRSA presents with complaint of right flank pain that started 3 days prior to arrival. Patient denies dysuria. Patient does report a history of chronic back pain but states this is different. Patient has associated nausea without vomiting. She denies fever. I have greeted and performed a rapid initial assessment of this patient. A comprehensive ED assessment and evaluation of the patient, analysis of test results and completion of medical decision making process we will be contacted by additional ED providers. PHYSICAL EXAMINATION: Vital signs reviewed-within normal limits GENERAL: Well-appearing, well-nourished and in no acute distress. LUNGS: No respiratory distress Musculoskeletal: Normal range of motion. Right CVA tenderness NEUROLOGICAL: Normal speech, normal gait. PSYCH: Normal mood, normal affect. SKIN: Warm, Dry, normal turgor, no rashes or lesions noted. TRAVEL OUTSIDE OF THE [place] IN LAST 30 DAYS: No - HPI Onset: Other Onset/Duration: Gradual, Persistent Quality of pain: Sharp Severity: Moderate Associated Symptoms: Nausea. denies: Vomiting Exacerbated by: Denies Relieved by: Denies Similar symptoms previously: Yes Recently seen / treated by doctor: No - Related Data Smoking: Cigarettes Frequency of alcohol use: Occasional Drug Abuse: None Allergies/Adverse Reactions: ofloxacin [From Floxin] Allergy (Intermediate, Verified 06/05/18 11:56) Hives Past Medical History - Social History Chew tobacco use (# tins/day): No Frequency of alcohol use: Occasional Drug Abuse: None Family history: Reviewed & Not Pertinent - Past Medical History Cardiac Medical History: Reports: Hx Congestive Heart Failure, Hx Hypertension Pulmonary Medical History: Reports: Hx Asthma, Hx Bronchitis, Hx COPD Endocrine Medical History: Reports: Hx Diabetes Mellitus Type 2 - gestational Renal/ Medical History: Denies: Hx Peritoneal Dialysis Musculoskeltal Medical History: Reports Hx Arthritis Past Surgical History: Reports: Hx Section, Hx Cholecystectomy, Hx Tubal Ligation - Immunizations Hx Diphtheria, Pertussis, Tetanus Vaccination: Yes History of Influenza Vaccine for 03/2017 - 08/2017 Season: No Physical Exam - Vital signs Vitals: Temp Pulse Resp BP Pulse Ox 98.0 F 59 L 16 135/64 H 96 06/05/18 11:45 06/05/18 11:45 06/05/18 11:45 06/05/18 11:45 06/05/18 11:45 Course - Vital Signs Vital signs: Temp Pulse Resp BP Pulse Ox 98.0 F 59 L 16 135/64 H 96 06/05/18 11:45 06/05/18 11:45 06/05/18 11:45 06/05/18 11:45 06/05/18 11:45 Doctor's Discharge - Discharge Referrals: IGNACIO VASQUEZ PA-C [Primary Care Provider] - Follow up as needed
[2018-06-05 12:59] LABS: ABSOLUTE BASOPHILS # (AUTO) 0.1 10^3/uL (0.0-0.2); ABSOLUTE EOSINOPHILS # (AUTO) 0.4 10^3/uL (0.0-0.6); ABSOLUTE LYMPHOCYTES (AUTO) 2.1 10^3/uL (0.5-4.7); ABSOLUTE MONOCYTES (AUTO) 0.8 10^3/uL (0.1-1.4); ABSOLUTE NEUT (AUTO) 10.2 10^3/uL (1.7-8.2); BASOPHILS % (AUTO) 0.8 % (0-2); EOSINOPHILS % (AUTO) 3.1 % (0-6); HEMATOCRIT 39.6 % (36.0-47.0); HEMOGLOBIN 12.2 g/dL (12.0-15.5); LYMPHOCYTES % (AUTO) 15.5 % (13-45); MEAN CORPUSCULAR HEMOGLOBIN 18.6 pg (27.0-33.4); MEAN CORPUSCULAR VOLUME 60 fl (80-97); MONOCYTES % (AUTO) 5.8 % (3-13); PLATELET COUNT 333 10^3/uL (150-450); RED BLOOD COUNT 6.58 10^6/uL (3.72-5.28); RED CELL DISTRIBUTION WIDTH 20.9 % (11.5-14.0); SEGMENTED NEUTROPHILS % (AUTO) 74.8 % (42-78); TOTAL CELLS COUNTED % (AUTO) 100 %; WHITE BLOOD COUNT 13.7 10^3/uL (4.0-10.5)
[2018-06-05 13:11] LABS: APPEARANCE,URINE SLIGHTLY-CLOUDY; BILIRUBIN,URINE NEGATIVE (NEGATIVE); COLOR,URINE YELLOW; GLUCOSE, URINE NEGATIVE (NEGATIVE); KETONES,URINE NEGATIVE (NEGATIVE); LEUKOCYTE ESTERASE,URINE NEGATIVE (NEGATIVE); NITRITE,URINE NEGATIVE (NEGATIVE); PROTEIN,URINE NEGATIVE (NEGATIVE); URINE SPECIFIC GRAVITY 1.014; UROBILINOGEN,URINE NEGATIVE mg/dL (<2.0)
[2018-06-05 13:27] LABS: ALANINE AMINOTRANSFERASE 12 U/L (9-52); ALBUMIN 4.2 g/dL (3.5-5.0); ALKALINE PHOSPHATASE 101 U/L (38-126); ANION GAP 6 (5-19); ASPARTATE AMINO TRANSFERASE 18 U/L (14-36); BILIRUBIN,DIRECT 0.2 mg/dL (0.0-0.4); BILIRUBIN,TOTAL 0.7 mg/dL (0.2-1.3); BLOOD UREA NITROGEN 12 mg/dL (7-20); CALCIUM 9.6 mg/dL (8.4-10.2); CARBON DIOXIDE 31 mmol/L (22-30); CHLORIDE 102 mmol/L (98-107); GLUCOSE 93 mg/dL (75-110); POTASSIUM 4.8 mmol/L (3.6-5.0); TOTAL PROTEIN 7.7 g/dL (6.3-8.2)
[2018-06-05 13:38] LABS: ANISOCYTOSIS 2+; HYPOCHROMASIA 1+; OVALOCYTES SLIGHT; PLATELET COMMENT ADEQUATE; PLATELET LARGE PRESENT; POLYCHROMASIA SLIGHT; TOXIC GRANULATION 1+; TOXIC VACUOLATION PRESENT
--- NOTE | 2018-06-05 14:15 | RADIOLOGY REPORT (SQ) ---
EXAM DESCRIPTION: CT LTD RENAL STONE PROTOCOL ON COMPLETED DATE/TIME: 06/05/2018 2:01 pm REASON FOR STUDY: right flank pain COMPARISON: CT abdomen pelvis, 03/31/2017 TECHNIQUE: CT scan of the abdomen and pelvis performed without intravenous or oral contrast. Images reviewed with lung, soft tissue, and bone windows. Reconstructed coronal and sagittal MPR images revi ewed. All images stored on PACS. All CT scanners at this facility use dose modulation, iterative reconstruction, and/or weight based d osing when appropriate to reduce radiation dose to as low as reasonably achievable (ALARA). [facility]: Dose Right [facility]: CareDose [facility]: Dose Right [facility]: Teradose 4D [facility]: Smart [employer] RADIATION DOSE: CT Rad equipment meets quality standard of care and radiation dose reduction techniq ues were employed. CTDIvol: 23.6 mGy. DLP: 1344 mGy-cm.mGy. LIMITATIONS: None. FINDINGS: LOWER CHEST: No significant findings. No nodules or infiltrates. NON-CONTRASTED LIVER, SPLEEN, ADRENALS: Evaluation limited by lack of IV contrast. Benign fat contai diogo adenoma of the left adrenal gland. PANCREAS: No masses. No peripancreatic inflammatory changes. GALLBLADDER: Status post cholecystectomy. RIGHT KIDNEY AND URETER: No suspicious masses. Assessment limited by lack of IV contrast. No signif icant calcifications. No hydronephrosis or hydroureter. LEFT KIDNEY AND URETER: No suspicious masses. Assessment limited by lack of IV contrast. No signifi cant calcifications. No hydronephrosis or hydroureter. AORTA AND RETROPERITONEUM: No aneurysm. No retroperitoneal masses or adenopathy. BOWEL AND PERITONEAL CAVITY: No obvious masses or inflammatory changes. No free fluid. APPENDIX: Normal. PELVIS, BLADDER, AND ABDOMINAL WALL:No abnormal masses. No free fluid. Bladder normal. Superficial s oft tissue stranding over the low abdomen. Tampon in the vagina. BONES: No significant findings. OTHER: No other significant finding. IMPRESSION: 1. No noncontrast CT findings to explain right flank pain. No evidence of urinary tract calculus. Normal appendix in the right lower quadrant. 2. Superficial soft tissue stranding over the low midline abdomen. Correlate for bruising or other skin abnormality. COMMENT: Quality ID # [id number]: Final reports with documentation of one or more dose reduction techniques (e.g., Automated exposure control, adjustment of the mA and/or kV according to patient size, use of iterative reconstruction technique) TECHNICAL DOCUMENTATION: JOB ID: [id number] [employer]- All Rights Reserved Reading location - IP/workstation name: [email or web address]
[2018-06-05] MEDS ORDERED: KETOROLAC TROMETHAMINE INJ/PF 30 MG/1 ML SDV IV ONE (14:21)
[2018-06-05] MEDS ORDERED: ONDANSETRON HCL INJ/PF 4 MG/2 ML SDV IV ONE (14:21)
--- NOTE | 2018-06-05 14:43 | ER Document Report ---
ED General - General Chief Complaint: Flank Pain Stated Complaint: RIGHT FLANK PAIN Time Seen by Provider: 06/05/18 12:04 Mode of Arrival: Ambulatory Notes: Patient is a 42-year-old female that presents to the emergency department for chief complaint of abdominal pain and left flank pain. Patient states the pain started about 5 days ago, and has been persistent and seemingly worsening over time. The pain is located in the left flank, and they currently rate the pain as a 6 out of 10, and described as aching, and constant. They have had associated nausea, but no vomiting, she does have a history of kidney stones, she is not sure if it is from that or if she has a kidney infection, so she decided come to the ED to be evaluated. She denies having any hematuria, dysuria or pain with urination, denies any any fevers, chills, night sweats, chest pain, shortness of breath or difficulty breathing. Past Medical History: Diabetes mellitus, hypertension, kidney stones Past Surgical History: , tubal ligation Social History: Admits to smoking cigarettes daily, denies alcohol or drug use Family History: Reviewed and noncontributory for presenting illness Allergies: Reviewed, see documented allergy list. REVIEW OF SYSTEMS: Other than noted above, the 12 point review of systems was reviewed with the patient and were negative, all pertinent findings are included in the HPI. PHYSICAL EXAMINATION: Vital signs reviewed, nursing noted reviewed. GENERAL: Patient appears older than stated age, but in no acute distress. HEAD: Atraumatic, normocephalic. EYES: Eyes appear normal, extraocular movements intact, sclera anicteric, conjunctiva are normal. ENT: nares patent, oropharynx clear without exudates. Moist mucous membranes. NECK: Normal range of motion, supple without lymphadenopathy LUNGS: Breath sounds clear to auscultation bilaterally and equal. No wheezes rales or rhonchi. HEART: Regular rate and rhythm without murmurs ABDOMEN: Soft, obese, there is mild right CVA tenderness to palpation, normal bowel sounds, no anterior abdominal tenderness with palpation, No rebound, guarding, or rigidity. No masses appreciated. EXTREMITIES: Nontender, good range of motion, bilateral 1+ edema in the lower extremities, chronic per patient NEUROLOGICAL: No focal neurological deficits. Moves all extremities spontaneously Motor and sensory grossly intact on exam. PSYCH: Normal mood, normal affect. SKIN: Warm, Dry, normal turgor, no rashes or lesions noted on exposed skin TRAVEL OUTSIDE OF THE [place] IN LAST 30 DAYS: No - Related Data Allergies/Adverse Reactions: ofloxacin [From Floxin] Allergy (Intermediate, Verified 06/05/18 11:56) Hives Past Medical History - General Information source: Patient - Social History Smoking Status: Current Every Day Smoker Chew tobacco use (# tins/day): No Frequency of alcohol use: Occasional Drug Abuse: None Family History: Reviewed & Not Pertinent Patient has suicidal ideation: No Patient has homicidal ideation: No - Past Medical History Cardiac Medical History: Reports: Hx Congestive Heart Failure, Hx Hypertension Pulmonary Medical History: Reports: Hx Asthma, Hx Bronchitis, Hx COPD Endocrine Medical History: Reports: Hx Diabetes Mellitus Type 2 - gestational Renal/ Medical History: Denies: Hx Peritoneal Dialysis Musculoskeletal Medical History: Reports Hx Arthritis Past Surgical History: Reports: Hx Section, Hx Cholecystectomy, Hx Tubal Ligation - Immunizations Hx Diphtheria, Pertussis, Tetanus Vaccination: Yes Physical Exam - Vital signs Vitals: Temp Pulse Resp BP Pulse Ox 98.0 F 59 L 16 135/64 H 96 06/05/18 11:45 06/05/18 11:45 06/05/18 11:45 06/05/18 11:45 06/05/18 11:45 Course - Vital Signs Vital signs: Temp Pulse Resp BP Pulse Ox 98.0 F 59 L 16 135/64 H 96 06/05/18 11:45 06/05/18 11:45 06/05/18 11:45 06/05/18 11:45 06/05/18 11:45 - Laboratory Result Diagrams: 06/05/18 12:47 06/05/18 12:47 Laboratory results interpreted by me: 06/05/18 06/05/18 06/05/18 12:47 12:47 12:47 WBC 13.7 H RBC 6.58 H MCV 60 L MCH 18.6 L MCHC 31.0 L RDW 20.9 H Absolute Neutrophils 10.2 H Carbon Dioxide 31 H Urine Blood MODERATE H Discharge - Discharge Clinical Impression: Flank pain, Bladder stone Condition: Stable Disposition: HOME, SELF-CARE Instructions: Flank Pain ([facility]), Kidney Stone ([facility]) Additional Instructions: Please follow-up with urology, call for an appointment. If you have worsening pain, vomiting, fevers or chills, do not hesitate to return to the emergency department. [email or web address] [address] [email or web address] [facility] [address] [place] [email or web address] [address], [place] Prescriptions: Ketorolac Tromethamine [Toradol 10 mg Tablet] 10 mg PO Q8HP PRN #10 tablet PRN Reason: flank pain Ondansetron [Zofran Odt 4 mg Tablet] 1 tab PO Q8H PRN #15 tab.rapdis PRN Reason: For Nausea/Vomiting Referrals: IGNACIO VASQUEZ PA-C [Primary Care Provider] - Follow up in 3-5 days
[2018-06-05 15:04] VITALS: BP 117/65
== END 2018-06-05 15:04 | disposition home or self-care (01) ==
LOC: ER 11:36
DX: N21.0 Calculus in bladder (principal); R10.9 Unspecified abdominal pain; R11.0 Nausea; F17.210 Nicotine dependence, cigarettes, uncomplicated; E11.9 Type 2 diabetes mellitus without complications; I50.9 Heart failure, unspecified; I11.0 Hypertensive heart disease with heart failure; Z87.442 Personal history of urinary calculi; Z90.49 Acquired absence of other specified parts of digestive tract; Z98.51 Tubal ligation status
CPT/HCPCS: 99284; 96374; 96375; 36415; 85025; 80053; 81001; 76380; J1885; J2405

== ENCOUNTER 2018-11-19 15:10 | Emergency (ER) | payer MEDICAID ==
[2018-11-19 15:15] VITALS: BP 179/55
--- NOTE | 2018-11-19 15:54 | ER Document Report ---
ED Medical Screen (RME) - General Chief Complaint: Abdominal Pain Stated Complaint: ABDOMINAL PAIN Time Seen by Provider: 11/19/18 15:47 Mode of Arrival: Ambulatory Information source: Patient Notes: Patient presents to the emergency department with complaints of right upper quad generalized abdominal tenderness since yesterday. Patient reports no other family member ill. Reports last bowel movement was today at 2:00. She reports she still feels like she has to go. Denies pain with void. Reports some nausea denies vomiting diarrhea. Patient has a very large abdomen very ttp. Has h istory of Linda. I have greeted and performed a rapid initial assessment of this patient. A comprehensive ED assessment and evaluation of the patient, analysis of test results and completion of the medical decision making process will be conducted by additional ED providers. Dictation of this chart was performed using voice recognition software; therefore, there may be some unintended grammatical errors. TRAVEL OUTSIDE OF THE [place] IN LAST 30 DAYS: No - Related Data Allergies/Adverse Reactions: ofloxacin [From Floxin] Allergy (Intermediate, Verified 11/19/18 15:11) Hives Past Medical History - Social History Family history: Reviewed & Not Pertinent - Past Medical History Cardiac Medical History: Reports: Hx Congestive Heart Failure, Hx Hypertension Pulmonary Medical History: Reports: Hx Asthma, Hx Bronchitis, Hx COPD Endocrine Medical History: Reports: Hx Diabetes Mellitus Type 2 - gestational Renal/ Medical History: Denies: Hx Peritoneal Dialysis Musculoskeltal Medical History: Reports Hx Arthritis Past Surgical History: Reports: Hx Section, Hx Cholecystectomy, Hx Tubal Ligation - Immunizations Hx Diphtheria, Pertussis, Tetanus Vaccination: Yes History of Influenza Vaccine for 03/2017 - 08/2017 Season: No Physical Exam - Vital signs Vitals: Temp Pulse Resp BP Pulse Ox 98.4 F 73 20 179/55 H 97 11/19/18 15:14 11/19/18 15:14 11/19/18 15:14 11/19/18 15:14 11/19/18 15:14 Course - Vital Signs Vital signs: Temp Pulse Resp BP Pulse Ox 98.4 F 73 20 179/55 H 97 11/19/18 15:14 11/19/18 15:14 11/19/18 15:14 11/19/18 15:14 11/19/18 15:14
[2018-11-19 16:30] LABS: ABSOLUTE BASOPHILS # (AUTO) 0.1 10^3/uL (0.0-0.2); ABSOLUTE EOSINOPHILS # (AUTO) 0.7 10^3/uL (0.0-0.6); ABSOLUTE LYMPHOCYTES (AUTO) 2.2 10^3/uL (0.5-4.7); ABSOLUTE MONOCYTES (AUTO) 0.6 10^3/uL (0.1-1.4); ABSOLUTE NEUT (AUTO) 8.5 10^3/uL (1.7-8.2); EOSINOPHILS % (AUTO) 5.6 % (0-6); HEMOGLOBIN 11.6 g/dL (12.0-15.5); LYMPHOCYTES % (AUTO) 17.9 % (13-45); MEAN CORPUSCULAR HGB CONC 30.5 g/dL (32.0-36.0); MEAN CORPUSCULAR VOLUME 62 fl (80-97); MONOCYTES % (AUTO) 5.2 % (3-13); PLATELET COUNT 328 10^3/uL (150-450); RED BLOOD COUNT 6.09 10^6/uL (3.72-5.28); RED CELL DISTRIBUTION WIDTH 18.9 % (11.5-14.0); SEGMENTED NEUTROPHILS % (AUTO) 70.3 % (42-78); TOTAL CELLS COUNTED % (AUTO) 100 %; WHITE BLOOD COUNT 12.1 10^3/uL (4.0-10.5)
[2018-11-19 16:34] LABS: APPEARANCE,URINE CLEAR; BILIRUBIN,URINE NEGATIVE (NEGATIVE); COLOR,URINE YELLOW; GLUCOSE, URINE NEGATIVE (NEGATIVE); KETONES,URINE NEGATIVE (NEGATIVE); LEUKOCYTE ESTERASE,URINE NEGATIVE (NEGATIVE); NITRITE,URINE NEGATIVE (NEGATIVE); PROTEIN,URINE NEGATIVE (NEGATIVE); URINE SPECIFIC GRAVITY 1.025; UROBILINOGEN,URINE NEGATIVE mg/dL (<2.0)
[2018-11-19 16:55] LABS: POLYCHROMASIA SLIGHT
[2018-11-19 16:56] LABS: ANISOCYTOSIS 1+; HYPOCHROMASIA SLIGHT; OVALOCYTES SLIGHT; PLATELET COMMENT ADEQUATE
[2018-11-19 16:59] LABS: ALANINE AMINOTRANSFERASE 21 U/L (9-52); ALBUMIN 3.9 g/dL (3.5-5.0); ALKALINE PHOSPHATASE 123 U/L (38-126); AMYLASE 35 U/L (30-110); ANION GAP 11 (5-19); ASPARTATE AMINO TRANSFERASE 16 U/L (14-36); BILIRUBIN,DIRECT 0.3 mg/dL (0.0-0.4); BILIRUBIN,TOTAL 0.6 mg/dL (0.2-1.3); BLOOD UREA NITROGEN 11 mg/dL (7-20); CALCIUM 9.1 mg/dL (8.4-10.2); CARBON DIOXIDE 28 mmol/L (22-30); CHLORIDE 103 mmol/L (98-107); GLUCOSE 95 mg/dL (75-110); POTASSIUM 4.3 mmol/L (3.6-5.0); SODIUM 142.1 mmol/L (137-145); TOTAL PROTEIN 7.2 g/dL (6.3-8.2)
--- NOTE | 2018-11-19 19:45 | RADIOLOGY REPORT (SQ) ---
EXAM DESCRIPTION: CT ABD/PELVIS NO ORAL OR IV COMPLETED DATE/TIME: 11/19/2018 7:33 pm REASON FOR STUDY: abdominal pain COMPARISON: 12/06/2013 TECHNIQUE: CT scan of the abdomen and pelvis performed without intravenous or oral contrast. Images reviewed with lung, soft tissue, and bone windows. Reconstructed coronal and sagittal MPR images revi ewed. All images stored on PACS. All CT scanners at this facility use dose modulation, iterative reconstruction, and/or weight based d osing when appropriate to reduce radiation dose to as low as reasonably achievable (ALARA). [facility]: Dose Right [facility]: CareDose [facility]: Dose Right [facility]: Teradose 4D [facility]: Smart [employer] RADIATION DOSE: CT Rad equipment meets quality standard of care and radiation dose reduction techniq ues were employed. CTDIvol: 19.2 mGy. DLP: 1075 mGy-cm.mGy. LIMITATIONS: None. FINDINGS: LOWER CHEST: No significant findings. No nodules or infiltrates. NON-CONTRASTED LIVER, SPLEEN, ADRENALS: Evaluation limited by lack of IV contrast. No identified sign ificant masses. PANCREAS: No masses. No peripancreatic inflammatory changes. GALLBLADDER: Surgically absent. RIGHT KIDNEY AND URETER: No suspicious masses. Assessment limited by lack of IV contrast. No signif icant calcifications. No hydronephrosis or hydroureter. LEFT KIDNEY AND URETER: No suspicious masses. Assessment limited by lack of IV contrast. No signifi cant calcifications. No hydronephrosis or hydroureter. AORTA AND RETROPERITONEUM: No aneurysm. No retroperitoneal masses or adenopathy. BOWEL AND PERITONEAL CAVITY: No obvious masses or inflammatory changes. No free fluid. APPENDIX: Not identified. PELVIS, BLADDER, AND ABDOMINAL WALL:There appears to be a prominent calculus in the urinary bladder o n the left. BONES: No acute or significant finding. OTHER: No other significant finding. IMPRESSION: Bladder calculus. No acute finding. COMMENT: Quality ID # [id number]: Final reports with documentation of one or more dose reduction techniques (e.g., Automated exposure control, adjustment of the mA and/or kV according to patient size, use of iterative reconstruction technique) TECHNICAL DOCUMENTATION: JOB ID: [id number] [employer]- All Rights Reserved Reading location - IP/workstation name: [email or web address]
[2018-11-19] MEDS ORDERED: DICYCLOMINE HCL INJ 20 MG/2 ML AMPULE IM ONE (20:21)
[2018-11-19] MEDS ORDERED: ONDANSETRON 4 MG TAB.RAPDIS PO ONE (20:21)
[2018-11-19] MEDS ORDERED: ONDANSETRON ODT 4 MG TAB (6 TAB/ER DISP) PO PRN (20:37)
--- NOTE | 2018-11-19 20:39 | ER Document Report ---
ED General - General Chief Complaint: Abdominal Pain Stated Complaint: ABDOMINAL PAIN Time Seen by Provider: 11/19/18 15:47 Mode of Arrival: Ambulatory TRAVEL OUTSIDE OF THE [place] IN LAST 30 DAYS: No - HPI Notes: Patient is a 43-year-old female who presents to the emergency department for evaluation of abdominal pain. She states that started yesterday. She had diarrhea yesterday. She had one loose bowel movement today. She states she has crampy abdominal pain that is all over. She denies any focal areas of pain. No fevers. No urinary symptoms. Her only abdominal symptom beyond the nausea at this point is feeling as if she "still has to go." She states she has not moved her bowels since 2 PM today. - Related Data Allergies/Adverse Reactions: ofloxacin [From Floxin] Allergy (Intermediate, Verified 11/19/18 15:11) Hives Past Medical History - General Information source: Patient - Social History Smoking Status: Former Smoker Frequency of alcohol use: Occasional Drug Abuse: None Family History: Reviewed & Not Pertinent Patient has suicidal ideation: No Patient has homicidal ideation: No - Past Medical History Cardiac Medical History: Reports: Hx Congestive Heart Failure, Hx Hypertension Pulmonary Medical History: Reports: Hx Asthma, Hx Bronchitis, Hx COPD Endocrine Medical History: Reports: Hx Diabetes Mellitus Type 2 - gestational Renal/ Medical History: Denies: Hx Peritoneal Dialysis Musculoskeletal Medical History: Reports Hx Arthritis Past Surgical History: Reports: Hx Section, Hx Cholecystectomy, Hx Tubal Ligation - Immunizations Hx Diphtheria, Pertussis, Tetanus Vaccination: Yes Review of Systems - Review of Systems Constitutional: No symptoms reported EENT: No symptoms reported Cardiovascular: No symptoms reported Respiratory: No symptoms reported Gastrointestinal: See HPI Genitourinary: No symptoms reported Female Genitourinary: No symptoms reported Musculoskeletal: No symptoms reported Skin: No symptoms reported Neurological/Psychological: No symptoms reported Physical Exam - Vital signs Vitals: Temp Pulse Resp BP Pulse Ox 98.4 F 73 20 179/55 H 97 11/19/18 15:14 11/19/18 15:14 11/19/18 15:14 11/19/18 15:14 11/19/18 15:14 - Notes Notes: Vital signs reviewed, please refer to chart. Head is normocephalic, atraumatic. Pupils equal round, reactive to light. Neck is supple without meningismus. Heart is regular rate and rhythm. Lungs are clear to auscultation bilaterally. Abdomen is globally tender with voluntary guarding throughout, normoactive bowel sounds throughout. No rebound. Extremities without cyanosis, clubbing. Posterior calves are nontender. Peripheral pulses are equal. Skin is warm and dry. Patient is awake, alert, neurological exam is nonfocal. Course - Re-evaluation Re-evalutation: 11/19/18 20:37 Patient presents emergency department for evaluation. She laboratory investigations as initially ordered through triage. She does have a mild leukocytosis, otherwise her labs are unremarkable. On exam, however, she did exhibit some guarding. Her exam is certainly limited by her body habitus as well. Decision was made to proceed with CT scan. CT scan failed to reveal any acute abnormality. Patient was administered Bentyl. We will send her home with nausea medication. She is to follow-up with her primary care physician tomorrow. She is to return to the emergency department with worsening or new concerning symptoms of any sort. - Vital Signs Vital signs: Temp Pulse Resp BP Pulse Ox 98.4 F 73 20 179/55 H 97 11/19/18 15:14 11/19/18 15:14 11/19/18 15:14 11/19/18 15:14 11/19/18 15:14 - Laboratory Result Diagrams: 11/19/18 16:16 11/19/18 16:16 Laboratory results interpreted by me: 11/19/18 16:16 WBC 12.1 H RBC 6.09 H Hgb 11.6 L MCV 62 L MCH 19.0 L MCHC 30.5 L RDW 18.9 H Absolute Neutrophils 8.5 H Absolute Eosinophils 0.7 H Discharge - Discharge Clinical Impression: Nausea, Diarrhea Abdominal pain Qualifiers: Abdominal location: generalized Qualified Code(s): R10.84 - Generalized abdominal pain Condition: Stable Disposition: HOME, SELF-CARE Instructions: Abdominal Pain ([facility]), Antispasmodics ([facility]) Additional Instructions: Follow-up with your primary care physician tomorrow. Zofran as needed for nausea. Return to the emergency department with worsening or new concerning symptoms of any sort.
== END 2018-11-19 20:52 | disposition home or self-care (01) ==
LOC: ER 15:10
DX: R10.84 Generalized abdominal pain (principal); R19.7 Diarrhea, unspecified; R11.0 Nausea; D72.829 Elevated white blood cell count, unspecified; I10 Essential (primary) hypertension; J44.9 Chronic obstructive pulmonary disease, unspecified; Z90.49 Acquired absence of other specified parts of digestive tract; Z98.51 Tubal ligation status; Z87.891 Personal history of nicotine dependence; Z88.1 Allergy status to other antibiotic agents
CPT/HCPCS: 99284; 96372; 36415; 82150; 85025; 80053; 81001; 74176; J0500; S0119

== ENCOUNTER 2020-03-30 08:13 | Emergency (ER) | payer SELFPAY ==
--- NOTE | 2020-03-30 08:40 | ER Document Report ---
HPI - HPI Patient complains to provider of: leg wound Time Seen by Provider: 03/30/20 08:29 Pain Level: Denies Notes: 4-year-old female with past medical history of obesity diabetes was to the emergency department with complaints of persistent leg wound sore to the left anterior lower leg for the past 2 months. She states that initially it started off as an area of itching and then it had blisters. She states she then popped the blisters which she thought might help. However, the blisters have been weeping and it just will not heal. She states she is diabetic. She supposed to be taking metformin but she does not like how it makes her feel and she has had some difficulty paying for her meds. - ROS Systems Reviewed and Negative: Yes All other systems reviewed and negative - CONSTITUTIONAL Constitutional: DENIES: Fever, Chills - EENT EENT: DENIES: Sore Throat, Ear Pain, Congestion - NEURO Neurology: DENIES: Headache - CARDIOVASCULAR Cardiovascular: DENIES: Chest pain - RESPIRATORY Respiratory: DENIES: Trouble Breathing, Coughing - GASTROINTESTINAL Gastrointestinal: DENIES: Abdominal Pain, Nausea, Patient vomiting, Diarrhea, Constipation - DERM Skin Color: Erythema - see hpi Skin Problems: Rash, Blister - see hpi Past Medical History - General Information source: Patient - Social History Smoking Status: Current Every Day Smoker Chew tobacco use (# tins/day): No Frequency of alcohol use: Occasional Drug Abuse: None Family History: Reviewed & Not Pertinent Patient has homicidal ideation: No - Past Medical History Cardiac Medical History: Reports: Hx Congestive Heart Failure, Hx Hypertension Pulmonary Medical History: Reports: Hx Asthma, Hx Bronchitis, Hx COPD Endocrine Medical History: Reports: Hx Diabetes Mellitus Type 2 - gestational Renal/ Medical History: Denies: Hx Peritoneal Dialysis Musculoskeletal Medical History: Reports Hx Arthritis Past Surgical History: Reports: Hx Section, Hx Cholecystectomy, Hx Tubal Ligation - Immunizations Hx Diphtheria, Pertussis, Tetanus Vaccination: Yes Vertical Provider Document - CONSTITUTIONAL Agree With Documented VS: Yes Exam Limitations: No Limitations General Appearance: WD/WN, No Apparent Distress - INFECTION CONTROL TRAVEL OUTSIDE OF THE [place] IN LAST 30 DAYS: No - HEENT HEENT: Atraumatic, Normocephalic, PERRLA - NECK Neck: Normal Inspection, Supple - RESPIRATORY Respiratory: Breath Sounds Normal, No Respiratory Distress. negative: Rales, Rhonchi, Wheezing - CARDIOVASCULAR Cardiovascular: Regular Rate, Regular Rhythm, No Murmur - GI/ABDOMEN Gastrointestinal: Abdomen Soft, Abdomen Non-Tender Notes: morbidly obese - MUSCULOSKELETAL/EXTREMETIES Musculoskeletal/Extremeties: VERENA JOHNSON - NEURO Level of Consciousness: Awake, Alert, Appropriate Motor/Sensory: No Motor Deficit, No Sensory Deficit - DERM Integumentary: Rash - Anterior left callejas there is a rash. It is evidence that they were blisters that popped and now have superimposed infection to them. There is one area vesicle that is slightly weeping. There is no streaking erythema to suggest lymphangitis. There is warmth surrounding the blisters and erythema. There is no drainable abscess. There is no desquamation, necrosis, crepitus, joint involvement. DP pulses intact and equal bilaterally Course - Re-evaluation Re-evalutation: Impression: Left lower leg cellulitis. Suspect that she could have initially started with a possible viral infection and then it progressed to a more cellulitic bacterial infection. She is a diabetic and has not been taking her metformin. Her POC Accu-Chek here is in the 100s. We will write her for glipizide since she says the Metformin gives her intolerable side effects. I encouraged her to follow-up with primary care without fail. We will start her on empiric antiviral while awaiting HSV culture and start on antibiotics. She is to return if any worsening symptoms. She agrees with the plan. We will discharge home - Vital Signs Vital signs: Temp Pulse Resp BP Pulse Ox 98.0 F 68 20 187/72 H 96 03/30/20 08:21 03/30/20 08:18 03/30/20 08:18 03/30/20 08:18 03/30/20 08:18 Discharge - Discharge Clinical Impression: Elevated blood pressure reading Cellulitis Qualifiers: Site of cellulitis: extremity Site of cellulitis of extremity: lower extremity Laterality: left Qualified Code(s): L03.116 - Cellulitis of left lower limb Diabetes Qualifiers: Diabetes mellitus type: type 2 Diabetes mellitus [employer] insulin use: without [employer] use Diabetes mellitus complication status: with hyperglycemia Qualified Code(s): E11.65 - Type 2 diabetes mellitus with hyperglycemia Condition: Stable Disposition: HOME, SELF-CARE Instructions: Cellulitis ([facility]) Additional Instructions: Complete all antibiotics. Take antivirals as well while waiting for viral culture. Follow-up with primary care and dermatology. Your blood sugar this morning was 127. Please start to take glipizide. You should see your primary care physician for further management for your diabetes and 1 week. Follow up with [facility] with your PCP. Prescriptions: Glipizide [Glucotrol 5 mg Tablet] 5 mg PO DAILY #30 tablet Valacyclovir HCl [Valtrex 500 Mg Tablet] 1,000 mg PO TID #42 tablet Doxycycline Hyclate [Vibramycin 100 mg Tablet] 100 mg PO BID #20 tablet Referrals: LILLY ANDREW DO [ACTIVE STAFF] - Follow up in 1 week (for dermatology follow up)
[2020-03-30 09:45] VITALS: BP 178/70
== END 2020-03-30 09:59 | disposition home or self-care (01) ==
LOC: ER 08:13
DX: L03.116 Cellulitis of left lower limb (principal); E11.65 Type 2 diabetes mellitus with hyperglycemia; T38.3X6A Underdosing of insulin and oral hypoglycemic [antidiabetic] drugs, initial encounter; Z91.128 Patient's intentional underdosing of medication regimen for other reason; Z91.120 Patient's intentional underdosing of medication regimen due to financial hardship; Z91.14 Patient's other noncompliance with medication regimen; I10 Essential (primary) hypertension; J44.9 Chronic obstructive pulmonary disease, unspecified; F17.200 Nicotine dependence, unspecified, uncomplicated
CPT/HCPCS: 36415; 82962; 87070; 87077; 87186; 87205; 87250; 99283